=== PATIENT | female | born 1945 | race Caucasian/White ===

== ENCOUNTER 2020-02-14 20:08 | Emergency (ER) | payer MEDICARE, SELFPAY ==
[2020-02-14 20:21] VITALS: BP 198/70; PULSE 73; RESP 18; TEMP 36.8; O2SAT 93; BMI 54.6
--- NOTE | 2020-02-14 21:46 | ED.BACK ---
HPI - Back Pain/Injury General Chief Complaint: Back Pain/Injury Stated Complaint: Back and Leg pain Time Seen by Provider: 02/14/20 21:35 Source: patient Mode of arrival: ambulatory Limitations: no limitations History of Present Illness HPI Narrative: Patient obese with history of restless leg syndrome not taking any medication notice pain in the R lower back for last few days radiating to right leg no history of injury no urinary incontinence or bowel incontinence no focal deficit no sensory loss Related Data Previous Rx's Medication Instructions Recorded cholecalciferol (vitamin D3) 1,250 1,250 mcg PO QWEEK #8 cap 12/22/19 mcg (50,000 unit) capsule cyclobenzaprine 10 mg PO TID PRN #20 tab 02/14/20 lidocaine [Lidoderm] 1 patch TOPICAL DAILY #30 ea 02/14/20 tramadol 50 mg PO Q6H PRN #20 tab 02/14/20 Allergies Allergy/AdvReac Type Severity Reaction Status Date / Time Penicillins [PENICILLINS] Allergy Intermediate SWELLING/RA Verified 02/14/20 20:27 SH penicillin V Allergy Unknown UNKNOWN Verified 02/14/20 20:27 Penicillin Allergy Unknown Swelling Uncoded 02/14/20 20:27 Review of Systems Review of Systems: Constitutional : No Weight loss, No Fever, No Chills ENT/Mouth : No sore throat, No Rhinorrhea Eyes: No Eye Pain, No Swelling Cardiovascular : No Chest Pain, no Dyspnea on Exertion, No Orthopnea, No Edema, No Palpitations, no SOB Respiratory : No Cough, No Sputum Gastrointestinal : no Nausea, No Vomiting, No Diarrhea, No abdominal Pain, No Hematochezia, No Melena Genitourinary : No Dysuria, No Urinary Frequency Musculoskeletal : No joint pain, No Myalgias, No Joint Swelling Skin : No Skin Lesions, No rash Neuro : No Weakness, No Numbness, pos Dizziness, No Headache Psych : No Anxiety/Panic, No Depression Heme/Lymph: No Bruising, No Lymphadenopathy Endocrine : No Polyuria, No Polydipsia All other systems reviewed and are negative [facility] Past Medical History Medical History High cholesterol HTN (hypertension) Social History Social History Advance Directives: No Advance Directives Information Provided: No Physical Exam Vital Signs: Vital Signs: Last Vital Signs Temp 98.3 F 02/14/20 20:21 Pulse 73 02/14/20 20:21 Resp 18 02/14/20 20:21 BP 198/70 H 02/14/20 20:21 Pulse Ox 93 02/14/20 20:21 Body Mass Index 54.6 Appearance: Alert. Oriented X3. No acute distress. obese Eyes: Pupils equal, round and reactive to light. ENT: Pharynx normal. Neck: Normal inspection. Neck supple. CVS: Normal heart rate and rhythm. Pulses normal. Respiratory: No respiratory distress. Breath sounds normal. Abdomen: Soft and nontender. Bowel sounds are present, no mass palpable, no CVA tenderness Skin: Skin warm and dry. Normal skin color. Normal skin turgor. Extremities: No lower extremity edema. Back: Diffuse tenderness L3-L4 tenderness in the right sciatic area SLR negative bilateral deep tendon reflexes 2+ bilateral Neuro: Oriented X 3. No motor deficit. No sensory deficit. MDM - Back Pain/Injury MDM Narrative Medical decision making narrative: Patient plain x-ray showed L3 compression fracture. Will do CT scan of lumbar spine, CT scan showed superior endplate fracture of L3 without any central canal stenosis or neuroforaminal narrowing. Patient with no neuro deficit advised to follow up as outpatient for vertebroplasty patient feeling better ambulatory in the ER Discharge Plan Discharge Clinical Impression: Closed compression fracture of L3 vertebra Qualifiers: Encounter type: initial encounter Qualified Code(s): S32.030A - Wedge compression fracture of third lumbar vertebra, initial encounter for closed fracture Patient Disposition: Home, Self-Care Instructions: Vertebral Compression Fracture (ED) Additional Instructions: Rest , take pain medication as advised. Follow-up with PCP/radiology for further care including vertebroplasty Prescriptions: New tramadol 50 mg tablet 50 mg PO Q6H PRN (Reason: pain) Qty: 20 RF: 0 cyclobenzaprine 10 mg tablet 10 mg PO TID PRN (Reason: muscle spasm) Qty: 20 RF: 0 lidocaine [Lidoderm] 5 % adhesive patch,medicated 1 patch topical DAILY Qty: 30 RF: 0 No Action cholecalciferol (vitamin D3) 1,250 mcg (50,000 unit) capsule 1,250 mcg PO QWEEK Qty: 8 RF: 0 Referrals: Deven José MD [Physician] - 1 week (Compression fracture L3)
--- NOTE | 2020-02-14 21:54 | XR_ITS ---
EXAMINATION: XR LUMBOSACRAL SPINE CLINICAL INFORMATION: Right-sided sciatica COMPARISON: Thoracic spine 12/24/2015 TECHNIQUE: Three views of the lumbosacral spine. FINDINGS: 5 nonrib-bearing lumbar type vertebral bodies are seen. Mild convex left scoliosis. 3 mm grade 1 anterolisthesis L4 on L5. Mild superior endplate compression deformity of L3, age indeterminate. Lower lumbar facet arthropathy. XR/XR lumbar spine 2-3V IMPRESSION: Mild superior endplate compression deformity of L3, age indeterminate.
[2020-02-14] MEDS: Cyclobenzaprine HCl 10 MG TABLET PO (21:59)
[2020-02-14] MEDS: oxyCODONE HCl Immed Release 5 MG TABLET 10 MG PO (21:59)
--- NOTE | 2020-02-14 22:13 | CT_ITS ---
EXAMINATION: CT LUMBAR SPINE WITHOUT CONTRAST CLINICAL INFORMATION: L3 atraumatic fracture COMPARISON: X-rays earlier the same day. TECHNIQUE: Without contrast, axial tomographic images through the lumbar spine were obtained. Coronal and sagittal reformatted images were obtained reviewed as well. This CT examination was performed using dose optimization techniques as appropriate, variously including the following: *Automated exposure control *Adjustment of mA and/or kV according to patient size (this includes techniques or standardized protocols for targeted exams where dose is matched to indication/reason for exam; i.e. extremities or head) *Use of iterative reconstruction technique DLP; 1301 mGy-cm FINDINGS: Minimal 2 mm anterolisthesis of L4 on L5. Otherwise normal sagittal alignment. There is superior endplate compression deformity of L3. The appearance is indeterminate but is more likely chronic than acute. There is no extension into the posterior elements. Remaining lumbar vertebral bodies are intact. There is degenerative disc disease with anterior osteophytosis at T10-L1, greatest at T11-T12. This multilevel lower lumbar facet arthropathy greatest at L4-L5. Spinal levels: T12-L1 through L3-L4: No central canal stenosis or neuroforaminal narrowing. L4-L5: There is uncovering of the disc due to the anterolisthesis at this level and mild bilateral ligamentum flavum hypertrophy with mild to moderate right, mild left neuroforaminal narrowing. No central canal stenosis. L5-S1: No central canal stenosis or neuroforaminal narrowing. CT/CT lumbar spine wo con IMPRESSION: There is superior endplate compression deformity of L3. The appearance is indeterminate but it is more likely chronic than acute. Consider MRI for further evaluation as clinically indicated.
[2020-02-14] MEDS: dexAMETHasone 2 MG TABLET 10 MG PO (22:59)
--- NOTE | 2020-02-14 23:01 | PC.NURSE ---
pt medicated as per emar.
[2020-02-14] MEDS: Lidocaine 4 % Patch ADH..PATCH 1 PATCH TRANSDERMA (23:31)
== END 2020-02-14 23:32 | disposition home or self-care (01) ==
PROVIDERS: Emergency Provider Internal Medicine; PCP Internal Medicine
DX: S32.030A Wedge compression fracture of third lumbar vertebra, initial encounter for closed fracture (principal); G25.81 Restless legs syndrome; M79.604 Pain in right leg; X58.XXXA Exposure to other specified factors, initial encounter; Y93.9 Activity, unspecified; Y92.9 Unspecified place or not applicable; Y99.9 Unspecified external cause status; Z79.899 Other long term (current) drug therapy
CPT/HCPCS: 72100; 72131; 99283; 99284; J8540

== ENCOUNTER 2020-04-26 07:37 | Outpatient (REF) | payer MEDICARE, SELFPAY ==
[2020-04-26 12:01] LABS: Alanine Aminotransferase 39 U/L (0-31); Albumin Level 4.5 g/dL (3.5-5.0); Alkaline Phosphatase 92 U/L (39-117); Anion Gap 14 (12-20); Aspartate Amino Transferase 32 U/L (5-31); Bilirubin Total 1.1 mg/dL (0.0-1.0); Blood Urea Nitrogen 8 mg/dL (9-16); Calcium 9.5 mg/dL (8.4-10.2); Carbon Dioxide 33 mmol/L (22-29); Chloride 96 mmol/L (96-108); Cholesterol 217 mg/dL; Estimated Glomerular Filt Rate > 60; Glucose Fasting 104 mg/dL (60-99); HDL Cholesterol 78 mg/dL; LDL Cholesterol Calculated 111 mg/dl; Potassium 3.7 mmol/L (3.3-5.1); Sodium 139 mmol/L (135-145); Total Protein 7.3 g/dL (6.5-8.0); Triglycerides 143 mg/dL
[2020-04-26 12:28] LABS: Vitamin D 25-OH Total 61.8 ng/mL (>30)
[2020-04-26 12:39] LABS: Folate 7.7 ng/mL (> or = 4.0); Vitamin B12 1412 pg/mL (200-900)
== END 2020-04-26 07:38 | disposition home or self-care (01) ==
LOC: HO.HMGCLDS 07:37
PROVIDERS: PCP Internal Medicine; Visit Provider Internal Medicine
DX: E78.5 Hyperlipidemia, unspecified (principal); E53.8 Deficiency of other specified B group vitamins; I10 Essential (primary) hypertension; Z78.0 Asymptomatic menopausal state
CPT/HCPCS: 36415; 80053; 80061; 82306; 82607; 82746

== ENCOUNTER 2020-10-05 07:52 | Outpatient (REF) | payer MEDICARE, SELFPAY ==
[2020-10-05 12:02] LABS: Alanine Aminotransferase 16 U/L (0-31); Anion Gap 14 (12-20); Aspartate Amino Transferase 15 U/L (5-31); Blood Urea Nitrogen 6 mg/dL (9-16); Carbon Dioxide 32 mmol/L (22-29); Chloride 99 mmol/L (96-108); Cholesterol 189 mg/dL; Estimated Glomerular Filt Rate > 60; Glucose Fasting 111 mg/dL (60-99); HDL Cholesterol 58 mg/dL; LDL Cholesterol Calculated 104 mg/dl; Potassium 4.6 mmol/L (3.3-5.1); Sodium 140 mmol/L (135-145); Triglycerides 135 mg/dL
[2020-10-05 12:07] LABS: Vitamin D 25-OH Total 52.5 ng/mL (>30)
[2020-10-05 12:25] LABS: Vitamin B12 647 pg/mL (200-900)
== END 2020-10-05 07:53 | disposition home or self-care (01) ==
LOC: HO.HMGCLDS 07:52
PROVIDERS: PCP Internal Medicine; Visit Provider Internal Medicine
DX: E78.5 Hyperlipidemia, unspecified (principal); I10 Essential (primary) hypertension; M85.89 Other specified disorders of bone density and structure, multiple sites
CPT/HCPCS: 36415; 80048; 80061; 82306; 82607; 82746; 84450; 84460

== ENCOUNTER 2020-12-16 10:46 | Outpatient (REF) | payer MEDICARE, SELFPAY ==
--- NOTE | ~2020-12-16 | MM_ITS ---
EXAMINATION: BONE DENSITOMETRY CLINICAL INDICATION: Asymptomatic menopausal state. COMPARISON: Previous BD dated 04/19/2018 and baseline BD dated 05/05/2011. CT lumbar spine 02/14/2020 TECHNIQUE: Using a [employer] DXA System (software version: 13.1) manufactured by [employer], dual-energy x-ray absorptiometry was performed of the lumbar spine and left hip. The images are of good technical quality. Summary results are attached. FINDINGS: AP SPINE L1-L4 (excluding L3): The data of L1-L4 has been changed to exclude the L3 vertebral body, because degenerative changes at this level may cause overestimation of lumbar spine density. Current: BMD 0.992 g/cm2, Z-score -0.9, T-score -1.5, osteopenia, 4.8% increase from previous, 4.4% increase from baseline (<5% change is not significant). Prior: BMD 0.947 g/cm2. Baseline: BMD 0.950 g/cm2. LEFT FEMUR, NECK: Current: BMD 0.789 g/cm2, Z-score -0.6, T-score -1.8, osteopenia. Prior: BMD 0.717 g/cm2. Baseline: BMD 0.810 g/cm2. LEFT FEMUR, TOTAL: Current: BMD 0.815 g/cm2, Z-score -0.6, T-score -1.5, osteopenia, 11.5% decrease from previous, 7.5% decrease from baseline (<5% change is not significant). Prior: BMD 0.921 g/cm2. Baseline: BMD 0.881 g/cm2. IDENTIFIED RISK FACTORS: Osteoporosis, height loss, history of fracture (adult). Early menopause, secondary osteoporosis, thiazide, hysterectomy. HISTORY OF FRACTURE: L3 superior endplate concavity/depression. MEDICATIONS: Calcium supplements or multivitamin, vitamin D, bisphosphonates. MM/XR DEXA axial skeleton IMPRESSION: 1. DIAGNOSIS: Osteopenia based on the lowest T-score value of -1.8 in the femoral neck applying World Health Organization criteria. 2. 10-YEAR FRACTURE RISK PREDICTION, FRAX: Major osteoporotic fracture (clinical spine, forearm, hip or shoulder) 15.4%. Hip fracture 3.0%. 3. Treatment Recommendations: NOF guidelines recommend consideration for treatment in postmenopausal women and men age 50 and older presenting with the following: -A hip or vertebral (clinical or morphometric) fracture. -T-score less than or equal to -2.5 at the femoral neck or spine after appropriate evaluation to exclude secondary causes. -Low bone mass at the hip or spine and a 10-year fracture probability by FRAX of greater than or equal to 3% for hip fracture or greater than or equal to 20% for major osteoporotic fracture based on the [place] adapted WHO algorithm. 4. Other Recommendations: All treatment decisions require clinical judgment and consideration of individual patient factors, including patient preferences, comorbidities, previous drug use, risk factors not captured in the FRAX model (e.g. frailty, falls, vitamin D deficiency, increased bone turnover, interval significant decline in bone density) and possible under or overestimation of fracture risk by FRAX. Additional medical evaluation for secondary cause of low bone mineral density may be appropriate. FUTURE SCAN RECOMMENDATION: People with diagnosed cases of osteoporosis or at high risk for fracture should have regular bone mineral density tests. For patients eligible for Medicare, routine testing is allowed once every 2 years. The testing frequency can be increased to one year for patients who have rapidly progressing disease, those who are receiving or discontinuing medical therapy to restore bone mass, or have additional risk factors.
== END 2020-12-16 10:47 | disposition home or self-care (01) ==
LOC: HO.MAMMO 10:46
PROVIDERS: PCP Internal Medicine; Visit Provider Internal Medicine
DX: Z13.820 Encounter for screening for osteoporosis (principal); M85.80 Other specified disorders of bone density and structure, unspecified site; Z78.0 Asymptomatic menopausal state; Z79.899 Other long term (current) drug therapy
CPT/HCPCS: 77080

== ENCOUNTER 2021-12-07 21:08 | Emergency (ER) | payer MEDICARE, SELFPAY ==
--- NOTE | ~2021-12-07 | XR_ITS ---
EXAMINATION: XR KNEE, LEFT CLINICAL INFORMATION: Left knee pain status post fall. COMPARISON: None TECHNIQUE: Four views of the left knee. FINDINGS: Mild patellofemoral degenerative joint changes are seen. The femoral tibial joint spaces are unremarkable. There is no acute fracture or dislocation. There is no joint effusion. Moderate prepatellar soft tissue swelling is seen. Moderate to severe atherosclerosis. XR/XR knee LT 3V IMPRESSION: 1. Moderate prepatellar soft tissue swelling without acute underlying osseous abnormality. 2. Mild patellofemoral degenerative joint changes.
--- NOTE | ~2021-12-07 | US_ITS ---
EXAMINATION: US VENOUS ULTRASOUND WITH DOPPLER LOWER EXTREMITY, LEFT CLINICAL INFORMATION: Left lower extremity pain. COMPARISON: None TECHNIQUE: Ultrasound of the deep veins is performed from the hip to the calf with compression sonography and color and pulse Doppler assessment. Spectral analysis with color-flow imaging is performed. FINDINGS: There is normal venous compression and respiratory variation and augmented flow. The visualized common femoral vein, superficial femoral vein, profunda femoral vein, popliteal vein, and the trifurcation region shows no evidence of deep venous thrombosis. No left popliteal cyst. The subcutaneous soft tissues are unremarkable. If the patient's symptoms persist, followup ultrasound in 5 days 7 days might be of value to exclude proximal propagation from a non-visualized calf vein. US/US venous duplex LE LT IMPRESSION: No evidence of deep venous thrombosis in the visualized veins of the left lower extremity.
[2021-12-07 21:18] VITALS: BP 122/72; BP 170/90; PULSE 77; PULSE 88; RESP 16; TEMP 37.1; O2SAT 94; O2SAT 95; BMI 52.3
--- NOTE | 2021-12-07 21:36 | ED.EXTPRO ---
HPI - Extremity Problem General Chief complaint: Extremity Injury, Lower Stated complaint: left lower leg pain Time Seen by Provider: 12/07/21 21:31 Source: patient Mode of arrival: ambulatory Limitations: no limitations History of Present Illness HPI Narrative: Patient complaining of pain in the left knee for last 3 days fell on the knee today and noticed more pain ambulating with walker at home is more painful now no fever no chills Related Data Home Medications Medication Instructions Recorded Confirmed ibuprofen 200 mg tablet (Motrin IB) 400 mg PO Q8H 04/30/20 07/09/21 Previous Rx's Medication Instructions Recorded sennosides 8.6 mg-docusate sodium 1 tab-cap PO BEDTIME PRN 02/24/20 50 mg tablet (Senokot-S) constipation #20 tabs atenolol 50 mg tablet 50 mg PO DAILY #90 caps 10/12/20 hydrochlorothiazide 25 mg tablet 25 mg PO DAILY #90 caps 10/12/20 simvastatin 20 mg tablet 20 mg PO QPM #90 caps 10/12/20 prednisone 20 mg tablet 20 mg PO DAILY 9 days #18 tabs 07/09/21 triamcinolone acetonide 0.1 % 1 appl topical DAILY 15 days #80 07/09/21 topical cream grams oxycodone-acetaminophen 5 mg-325 1 tab PO Q6H PRN pain #20 tabs 12/08/21 mg tablet (Percocet) Allergies Allergy/AdvReac Type Severity Reaction Status Date / Time Penicillins [PENICILLINS] Allergy Intermediate SWELLING/RA Verified 07/09/21 10:11 SH influenza virus vaccine ts AdvReac edema Verified 07/09/21 10:11 [id number] (36 mos,up) [From [employer]] Review of Systems Review of Systems: Yes all other systems are reviewed and are negative PMF Past Medical History Medical History Body mass index [BMI] 45.0-49.9, adult Dyslipidemia Elevated vitamin B12 level Essential hypertension High cholesterol HTN (hypertension) Lumbar compression fracture Osteopenia of multiple sites Surgical History History of bunionectomy History of hysterectomy Family History Family History Father Myocardial infarction Mother Myocardial infarction Diabetes mellitus HTN (hypertension) Brother Bone cancer Brother No problems noted. Son No problems noted. Son No problems noted. Son No problems noted. Son No problems noted. Social History Social History Housing: House Alcohol intake: current Patient Tobacco Use Status: Former Tobacco user Years Smoked: 3 yrs e-Cigarette/Vaping Use: Never Used Second Hand Smoke Exposure: No Advance Directives: No Advance Directives Information Provided: No service: No Current occupational status: retired Physical Exam Vital Signs: Vital Signs: Last Vital Signs Temp 98.7 F 12/07/21 21:18 Pulse 74 12/07/21 23:36 Resp 17 12/07/21 23:38 BP 119/59 L 12/07/21 23:36 Pulse Ox 97 12/07/21 23:36 O2 Del Method 12/07/21 23:36 BMI result Body Mass Index 52.3 Appearance: Alert. Oriented X3. No acute distress. Eyes: PERRLA, No Nystagmus ENT: Pharynx normal. Oral Mucosa moist Neck: Normal inspection. Neck supple. CVS: Normal heart rate and rhythm. Pulses normal. Respiratory: No respiratory distress. Equal air entry bilateral, no wheezing/rales/rhonchi Abdomen: Soft and nontender. Bowel sounds are present, no mass palpable, no CVA tenderness Skin: Skin warm and dry. Normal skin color. Normal skin turgor. Extremities: No lower extremity edema. No calf tenderness left knee prepatellar tenderness with soft tissue swelling no skin changes no signs of infection no joint effusion good range of left knee movement Neuro: Oriented X 3. No motor deficit. No sensory deficit.No cerebellar signs , cranial nerves II-XII intact MDM - Extremity (Nontraumatic) MDM Narrative Medical decision making narrative: X-ray negative for any significant effusion is wrap applied patient felt better able to ambulate in the ER discharge patient home Discharge Plan Discharge Clinical Impression: Bursitis, prepatellar, left Patient Disposition: Home, Self-Care Instructions: Knee Bursitis (ED) Additional Instructions: Wear Venkat wrap for support Pain medications as prescribed Prescriptions: New oxycodone-acetaminophen [Percocet] 5-325 mg tablet 1 tab PO Q6H PRN (Reason: pain) Qty: 20 0RF Rx Instructions: Partial Fill upon patient request. No Action sennosides-docusate sodium [Senokot-S] 8.6-50 mg tablet 1 tab-cap PO BEDTIME PRN (Reason: constipation) Qty: 20 0RF ibuprofen [Motrin IB] 200 mg tablet 400 mg PO Q8H atenolol 50 mg tablet 50 mg PO DAILY Qty: 90 3RF hydrochlorothiazide 25 mg tablet 25 mg PO DAILY Qty: 90 3RF simvastatin 20 mg tablet 20 mg PO QPM Qty: 90 3RF prednisone 20 mg tablet 20 mg PO DAILY 9 Days Qty: 18 0RF Rx Instructions: Take 3 tablets x3 days, 2 tablets x3 days, 1 tablet x3 days triamcinolone acetonide 0.1 % cream 1 appl topical DAILY 15 Days Qty: 80 0RF
[2021-12-07 23:36] VITALS: BP 119/59; PULSE 74; RESP 18; O2SAT 97
[2021-12-07 23:38] VITALS: RESP 17
[2021-12-07] MEDS: Morphine Sulfate 4 MG/ML CARTRIDGE IM (23:38)
== END 2021-12-08 00:50 | disposition home or self-care (01) ==
PROVIDERS: Emergency Provider Internal Medicine; PCP Internal Medicine
DX: M70.52 Other bursitis of knee, left knee (principal); M79.662 Pain in left lower leg; R60.0 Localized edema; Z79.899 Other long term (current) drug therapy; Z87.891 Personal history of nicotine dependence
CPT/HCPCS: 73562; 93971; 96372; 99283; 99284; J2270

== ENCOUNTER 2022-01-09 05:54 | Outpatient (REF) | payer MEDICARE, SELFPAY | END 2022-01-09 05:55 | disposition home or self-care (01) | LOC: HO.LHD 05:54 | PROVIDERS: Visit Provider Internal Medicine | DX: Z13.89 Encounter for screening for other disorder (principal) ==

== ENCOUNTER 2022-01-10 06:10 | Outpatient (REF) | payer MEDICARE, SELFPAY ==
[2022-01-10 11:40] LABS: Alanine Aminotransferase 19 U/L (0-31); Anion Gap 14 (12-20); Aspartate Amino Transferase 21 U/L (5-31); Blood Urea Nitrogen 7 mg/dL (9-16); Calcium 10.3 mg/dL (8.4-10.2); Carbon Dioxide 33 mmol/L (22-29); Chloride 95 mmol/L (96-108); Cholesterol 192 mg/dL; Estimated Glomerular Filt Rate > 60; Glucose Fasting 104 mg/dL (60-99); HDL Cholesterol 77 mg/dL; LDL Cholesterol Calculated 96 mg/dl; Potassium 4.7 mmol/L (3.3-5.1); Sodium 137 mmol/L (135-145); Triglycerides 97 mg/dL
[2022-01-10 12:21] LABS: Vitamin B12 1246 pg/mL (200-900)
[2022-01-10 13:41] LABS: Vitamin D 25-OH Total 48.9 ng/mL (>30)
== END 2022-01-10 06:11 | disposition home or self-care (01) ==
LOC: HO.LHD 06:10
PROVIDERS: Visit Provider Internal Medicine
DX: E78.5 Hyperlipidemia, unspecified (principal); R74.8 Abnormal levels of other serum enzymes; M85.89 Other specified disorders of bone density and structure, multiple sites; I10 Essential (primary) hypertension; N95.9 Unspecified menopausal and perimenopausal disorder
CPT/HCPCS: 36415; 80048; 80061; 82306; 82607; 82746; 84450; 84460

== ENCOUNTER 2022-06-21 11:40 | Outpatient (AMB) | payer MEDICARE, SELFPAY ==
[2022-06-21 12:14] VITALS: BP 110/68; PULSE 70; O2SAT 94; BMI 45.6
--- NOTE | 2022-06-21 12:14 | MHC.PC.OV ---
Vital Signs 06/21/22 12:14 Height 5 ft 5 in Weight 274 lb 8 oz BMI 45.6 BP 110/68 Blood Pressure Location Rt radial Position Sitting Pulse 70 Pulse Source Pulse Oximeter Pulse Oximetry (%) 94 Oxygen Delivery Method Room Air Intake Visit Reasons: 5 month follow up Intake Note: Pt is here today for a 4 month f/u Allergies Penicillins [PENICILLINS] Allergy (Intermediate, Verified 10/27/22 11:30) SWELLING/RASH influenza virus vaccine ts [id number] (36 mos,up) [From [employer]] Adverse Reaction (Verified 10/27/22 11:30) edema Medication List - Last Reconciled 06/21/22 by Wanda Richardson MD acetaminophen ER (Tylenol Arthritis Pain) 650 mg PO Q12H atenolol 50 mg PO DAILY diclofenac sodium 1% 4 grams topical QID PRN hydrochlorothiazide 25 mg PO DAILY ibuprofen (Motrin IB) 400 mg PO Q8H sennosides-docusate sodium 8.6-50 mg (Senokot-S) 1 tab-cap PO BEDTIME PRN simvastatin 20 mg PO QPM triamcinolone acetonide 0.1% 1 appl topical DAILY 15 days Tobacco use date assessed: 06/21/22 Fall risk assessment: No Falls in past year Last assessed Fall Risk: 06/21/22 HPI 5 month follow up HPI Details 77-year-old lady with hypertension, dyslipidemia, osteopenia of multiple sites with history of lumbar compression fracture, here today for follow-up. She has been feeling well with no complaints at present time. Has been compliant with taking her medications, but admits to not getting any regular exercise. [facility] Medical History (Updated 10/31/22 @ 01:12 by Wanda Richardson MD) Impaired fasting glucose Body mass index [BMI] 45.0-49.9, adult Elevated vitamin B12 level Osteopenia of multiple sites Essential hypertension Dyslipidemia Lumbar compression fracture High cholesterol HTN (hypertension) Surgical History History of bunionectomy History of hysterectomy Family History Father Myocardial infarction Mother Myocardial infarction Diabetes mellitus HTN (hypertension) Brother Bone cancer Brother No problems noted. Son No problems noted. Son No problems noted. Son No problems noted. Son No problems noted. Housing: House Alcohol intake: current Patient Tobacco Use Status: Former Tobacco user Years Smoked: 3 yrs e-Cigarette/Vaping Use: Never Used Second Hand Smoke Exposure: No service: No Current occupational status: retired Cognitive needs: No Hearing needs: No Vision needs: Yes Questionnaire PHQ-9 Over the last 2 weeks, how often have you been bothered by any of the following problems? 1. Little interest or pleasure in doing things: not at all 2. Feeling down, depressed, or hopeless: not at all 3. Trouble falling or staying asleep, or sleeping too much: more than half the days 4. Feeling tired or having little energy: several days 5. Poor appetite or overeating: not at all 6. Feeling bad about yourself - or that you are a failure or have let yourself or your family down: not at all 7. Trouble concentrating on things, such as reading the newspaper or watching television: not at all 8. Moving or speaking so slowly that other people could have noticed. Or the opposite - being so fidgety or restless that you have been moving around a lot more than usual: not at all 9. Thoughts that you would be better off or of hurting yourself in some way: not at all Total score: 3 Depression Screening Interpretation: Negative [id number] - PHQ-9 Billing: Yes Source: Developed by Drs. Torey Osborne, Greer Gonzalez, Jun Saul and colleagues, with an educational ewa from [employer]. Thrive Questionnaire Declines Thrive assessment: No Date Thrive assessed: 06/21/22 I am a: Patient What is your living situation today?: I have a steady place to live Within the past 12 months, did the food you bought not last and you didn't have the money to get more?: Never true Within the past 12 months, did you worry whether your food would run out before you got money to buy more?: Never true Do you have trouble paying for medicines?: No Do you have trouble getting transportation to medical appointments?: No Do you have trouble paying your heating and electricity bill?: No Do you have trouble taking care of your child, family member or friend?: Yes Do you have trouble with day-to-day activities such as bathing, preparing meals, shopping, managing finances, etc.?: No Are you currently unemployed and looking for a job?: No Are you interested in more education?: No AUDIT C Alcohol Use Questionnaire (AUDIT-C) 1. How often do you have a drink containing alcohol?: 2-3 times a week 2. How many drinks containing alcohol do you have on a typical day when you are drinking?: 1 or 2 3. How often do you have six or more drinks on one occasion?: Never Total Score: 3 ANA-7 AMB Questionnaire ANA-7 Date ANA - 7 assessed: 06/21/22 Feeling nervous, anxious, or on edge: 0 = Not at all Not being able to stop or control worryin = Not at all Worrying too much about different things: 0 = Not at all Trouble relaxin = Not at all Being so restless that it is hard to sit still: 0 = Not at all Becoming easily annoyed or irritable: 0 = Not at all Feeling afraid as if something awful might happen: 0 = Not at all Total ANA-7 score (0-4 normal; 5-9 mild; 10-14 moderate; 15-21 severe): 0 Source: Developed by Drs. Torey Osborne, Greer Gonzalez, Jun Saul and colleagues, with an educational ewa from [employer]. ANA-7 Assessment Billing ANA-7 Assessment Tool: ANA-7 Assessment 16675 Review of Systems Const Denies headache(s) Eyes Details: [facility] [place] [facility] , glaucoma suspect ENT Denies vertigo, Denies dizziness and Denies headache(s) Card Denies chest pain, Denies leg edema and Denies lightheadedness Resp Denies cough and Denies wheezing GI Denies abdominal pain, Denies constipation and Denies diarrhea Reports no additional complaints Musc Denies arthralgias, Denies joint swelling, Denies numbness and Denies tingling Neuro Denies vertigo, Denies dizziness, Denies headache(s), Denies numbness and Denies tingling Psych Reports no additional complaints Endo Reports no additional complaints Brandyn/Lymph Reports no additional complaints Aller/Immun Denies wheezing Physical exam (Primary Care) Vital Signs: Last Vital Signs Pulse 70 06/21/22 12:14 BP 110/68 06/21/22 12:14 Pulse Ox 94 06/21/22 12:14 Oxygen Delivery Method Room Air 06/21/22 12:14 BMI result Body Mass Index 45.6 Tobacco/Smoking Status: Tobacco use Status Tobacco use date assessed 06/21/22 06/21/22 12:23 Patient Tobacco Use Status Former Tobacco user 06/21/22 12:23 e-Cigarette/Vaping Use Never Used 06/21/22 12:23 PHQ-9: PHQ-9 Score PHQ-9: Total score 3 06/21/22 13:09 Depression Screening Interpretation: Negative Thrive Assessment: Date of Thrive Assessment Date Thrive assessed 06/21/22 06/21/22 12:23 Const General: comfortable, no acute distress, well developed, alert and awake Orientation/consciousness: patient oriented x3 HENMT Ears: EAC's normal General nose exam: Normal external nose present and No nasal discharge present Mouth: oropharynx normal and moist mucous membranes Throat: Yes posterior oropharynx normal Eyes General: appearance normal, both eyes and all related structures Pupils: Equal, round and reactive pupils present Neck Neck: Yes full ROM, Yes no lymphadenopathy and Yes supple Resp Effort & Inspection: normal respiratory effort and able to speak in complete sentences Auscultation: clear to auscultation bilaterally Cardio Rate: regular rate Rhythm: regular rhythm Heart sounds: S1 normal heart sound present and S2 normal heart sound present GI Inspection: Yes normal to inspection Palpation (GI): Soft to palpation, nontender and no masses Auscultation: normal bowel sounds Back/Spine/Pelvis Cervical Spine: cervical ROM normal Thoracic/Lumbar Spine: thoracic and lumbar spine normal to inspection Skin General skin exam: no rashes or lesions noted Neuro General: patient oriented x3 Cranial nerves: Yes Equal, round and reactive pupils present Cognition (Neuro): normal cognition Gait exam (Neuro): Normal gait present Motor exam (neuro): 5/5 motor strength present throughout Extrem General: Yes full ROM, Yes no joint enlargement, Yes no pedal edema and Yes no calf tenderness Assessment and Plan Assessment & Plan (1) Body mass index [BMI] 45.0-49.9, adult: Code(s): Z68.42 - Body mass index [BMI] 45.0-49.9, adult Plan: Your BMI is above the ideal range. I deal BMI is between 18.5- 24. BMI is calculated from you height and weight. Weight gain happens when you taken more calories than you burn off. Discussed need to increase activity and weight reduction. Recommended focusing on improving health instead of dieting. Mediterranean diet is a healthy diet that helps, limit food high in fat, sugar, and calories. Eat slowly, pay attention to portion sizes, plan your meals ahead of time, start regular physical activity, at least 150 minutes of moderate intensity exercise, or 90 minutes per week of vigorous exercise. Keeping a food diary, tracking what you eat and your physical activity can help assess what improvements you can make. There are many health problems associated with being overweight/obese, so it is important to improve your diet and exercise. There are medications and surgical options available, but Lifestyle changes are the 1st step. (2) Elevated vitamin B12 level: Code(s): R74.8 - Abnormal levels of other serum enzymes Plan: Will check and again another vitamin B12 level (3) Osteopenia of multiple sites: Code(s): M85.89 - Other specified disorders of bone density and structure, multiple sites Plan: Will check vitamin-D, basic metabolic panel, advised to start doing regular weight-bearing exercise as tolerated and stay active, (4) Essential hypertension: Code(s): I10 - Essential (primary) hypertension Plan: Blood pressure at goal of less than 130/80. Continue with current medication. Reinforced importance of following a low sodium diet, getting regular exercise, and lowering stress levels. (5) Dyslipidemia: Code(s): E78.5 - Hyperlipidemia, unspecified Plan: Fasting lipid panel ordered continue on simvastatin 20 mg at bedtime, in addition to adhering to low-cholesterol diet and getting regular exercise. Orders: Orders Alanine Aminotransferase 06/21/22 Z68.42 - Body mass index [BMI] 45.0-49.9, adult, R74.8 - Abnormal levels of other serum enzymes, M85.89 - Other specified disorders of bone density and structure, multiple sites, I10 - Essential (primary) hypertension, E78.5 - Hyperlipidemia, unspecified Basic Metabolic Panel Fasting 3 Months Z68.42 - Body mass index [BMI] 45.0-49.9, adult, R74.8 - Abnormal levels of other serum enzymes, M85.89 - Other specified disorders of bone density and structure, multiple sites, I10 - Essential (primary) hypertension, E78.5 - Hyperlipidemia, unspecified Lipid Panel 06/21/22 Z68.42 - Body mass index [BMI] 45.0-49.9, adult, R74.8 - Abnormal levels of other serum enzymes, M85.89 - Other specified disorders of bone density and structure, multiple sites, I10 - Essential (primary) hypertension, E78.5 - Hyperlipidemia, unspecified Vitamin B12 and Folate 06/21/22 Z68.42 - Body mass index [BMI] 45.0-49.9, adult, R74.8 - Abnormal levels of other serum enzymes, M85.89 - Other specified disorders of bone density and structure, multiple sites, I10 - Essential (primary) hypertension, E78.5 - Hyperlipidemia, unspecified Vitamin D 25-OH Total 06/21/22 Z68.42 - Body mass index [BMI] 45.0-49.9, adult, R74.8 - Abnormal levels of other serum enzymes, M85.89 - Other specified disorders of bone density and structure, multiple sites, I10 - Essential (primary) hypertension, E78.5 - Hyperlipidemia, unspecified Aspartate Amino Transferase 06/21/22 Z68.42 - Body mass index [BMI] 45.0-49.9, adult, R74.8 - Abnormal levels of other serum enzymes, M85.89 - Other specified disorders of bone density and structure, multiple sites, I10 - Essential (primary) hypertension, E78.5 - Hyperlipidemia, unspecified Calcium, Ionized 06/21/22 Z68.42 - Body mass index [BMI] 45.0-49.9, adult, R74.8 - Abnormal levels of other serum enzymes, M85.89 - Other specified disorders of bone density and structure, multiple sites, I10 - Essential (primary) hypertension, E78.5 - Hyperlipidemia, unspecified Coding Level of Care Code Est Pt Level 4 (76330) Diagnoses Body mass index [BMI] 45.0-49.9, adult Z68.42 Elevated vitamin B12 level R74.8 Osteopenia of multiple sites M85.89 Essential hypertension I10 Dyslipidemia E78.5 Additional Codes ANA-7 Assessment Billing - ANA-7 Assessment Tool: ANA-7 Assessment [id number] ([id number])
== END 2022-06-21 13:10 | disposition home or self-care (01) ==
LOC: HO.HMGC 11:40
PROVIDERS: PCP Internal Medicine; Visit Provider Internal Medicine
DX: R74.8 Abnormal levels of other serum enzymes (principal); M85.89 Other specified disorders of bone density and structure, multiple sites; Z68.42 Body mass index [BMI] 45.0-49.9, adult; E66.01 Morbid (severe) obesity due to excess calories; I10 Essential (primary) hypertension; E78.5 Hyperlipidemia, unspecified
CPT/HCPCS: 99214

== ENCOUNTER 2022-06-29 08:09 | Outpatient (REF) | payer MEDICARE, SELFPAY ==
[2022-06-29 12:48] LABS: Alanine Aminotransferase 14 U/L (0-31); Anion Gap 14 (12-20); Aspartate Amino Transferase 16 U/L (5-31); Blood Urea Nitrogen 9 mg/dL (9-16); Calcium 9.8 mg/dL (8.4-10.2); Carbon Dioxide 30 mmol/L (22-29); Chloride 98 mmol/L (96-108); Cholesterol 191 mg/dL; Estimated Glomerular Filt Rate > 60; Glucose Fasting 106 mg/dL (60-99); HDL Cholesterol 72 mg/dL; LDL Cholesterol Calculated 93 mg/dl; Potassium 4.6 mmol/L (3.3-5.1); Sodium 137 mmol/L (135-145); Triglycerides 131 mg/dL
[2022-06-29 13:03] LABS: Folate 7.7 ng/mL (> or = 4.0); Vitamin B12 421 pg/mL (200-900); Vitamin D 25-OH Total 37.9 ng/mL (>30)
[2022-07-03 08:38] LABS: Calcium, Ionized 5.2 mg/dL (4.7-5.5)
== END 2022-06-29 08:10 | disposition home or self-care (01) ==
LOC: HO.HMGCLDS 08:09
PROVIDERS: PCP Internal Medicine; Visit Provider Internal Medicine
DX: R74.8 Abnormal levels of other serum enzymes (principal); E78.5 Hyperlipidemia, unspecified; I10 Essential (primary) hypertension; M85.89 Other specified disorders of bone density and structure, multiple sites
CPT/HCPCS: 36415; 80048; 80061; 82306; 82330; 82607; 82746; 84450; 84460

== ENCOUNTER 2022-10-27 10:34 | Outpatient (AMB) | payer MEDICARE, SELFPAY ==
--- NOTE | 2022-10-27 10:44 | A.OFFPC_ITS ---
Vital Signs 10/27/22 10:48 Height 5 ft 5 in Weight 304 lb BMI 50.6 BP 148/80 H Blood Pressure Location Rt radial Position Sitting Pulse 75 Pulse Source Pulse Oximeter Pulse Oximetry (%) 98 Oxygen Delivery Method Room Air Comment Has not taken yet her blood pressure medicine this morning Intake Visit Reasons: 4 month follow up Intake Note: Pt is here today for her 4 months f/u: Pt states didn't care b/p med this morning Allergies Penicillins [PENICILLINS] Allergy (Intermediate, Verified 10/27/22 11:30) SWELLING/RASH influenza virus vaccine ts [id number] (36 mos,up) [From [employer]] Adverse Reaction (Verified 10/27/22 11:30) edema Medication List - Last Reconciled 10/27/22 by Wanda Richardson MD acetaminophen ER (Tylenol Arthritis Pain) 650 mg PO Q12H atenolol 50 mg PO DAILY diclofenac sodium 1% 4 grams topical QID PRN hydrochlorothiazide 25 mg PO DAILY ibuprofen (Motrin IB) 400 mg PO Q8H sennosides-docusate sodium 8.6-50 mg (Senokot-S) 1 tab-cap PO BEDTIME PRN simvastatin 20 mg PO QPM triamcinolone acetonide 0.1% 1 appl topical DAILY 15 days Tobacco use date assessed: 10/27/22 Fall risk assessment: No Falls in past year Last assessed Fall Risk: 10/27/22 Dental Screening Dental Screen Date: 10/27/22 Did you have a dental visit in the last 12 months?: No Was dental information given to patient?: Patient has dentist HPI 4 month follow up HPI Details 77-year-old lady with hypertension, dyslipidemia, osteopenia and multiple sites with history of lumbar compression fracture, here today for follow-up. She has been feeling well, compliant with taking medications and follows her diet as recommended, no complaints at present time. Had recent fasting labs done which showed fasting blood sugar in the prediabetic range at 106 mg/dL but her fasting lipids, liver enzymes vitamin-D, B12, folic acid levels and electrolytes are all within normal limits. [facility] Medical History (Updated 10/31/22 @ 01:12 by Wanda Richardson MD) Body mass index [BMI] 45.0-49.9, adult Dyslipidemia Elevated vitamin B12 level Essential hypertension High cholesterol HTN (hypertension) Impaired fasting glucose Lumbar compression fracture Osteopenia of multiple sites Surgical History History of bunionectomy History of hysterectomy Family History Father Myocardial infarction Mother Myocardial infarction Diabetes mellitus HTN (hypertension) Brother Bone cancer Brother No problems noted. Son No problems noted. Son No problems noted. Son No problems noted. Son No problems noted. Social History Housing: House Alcohol intake: current Patient Tobacco Use Status: Former Tobacco user Years Smoked: 3 yrs e-Cigarette/Vaping Use: Never Used Second Hand Smoke Exposure: No service: No Current occupational status: retired Cognitive needs: No Hearing needs: No Vision needs: Yes Questionnaire PHQ-9 Over the last 2 weeks, how often have you been bothered by any of the following problems? 1. Little interest or pleasure in doing things: not at all 2. Feeling down, depressed, or hopeless: not at all 3. Trouble falling or staying asleep, or sleeping too much: more than half the days 4. Feeling tired or having little energy: several days 5. Poor appetite or overeating: not at all 6. Feeling bad about yourself - or that you are a failure or have let yourself or your family down: not at all 7. Trouble concentrating on things, such as reading the newspaper or watching television: not at all 8. Moving or speaking so slowly that other people could have noticed. Or the opposite - being so fidgety or restless that you have been moving around a lot more than usual: not at all 9. Thoughts that you would be better off or of hurting yourself in some way: not at all Total score: 3 Depression Screening Interpretation: Negative Source: Developed by Drs. Torey Osborne, Greer Gonzalez, Jun Saul and colleagues, with an educational ewa from [employer]. Thrive Questionnaire Date Thrive assessed: 06/21/22 ANA-7 AMB Questionnaire ANA-7 Date ANA - 7 assessed: 06/21/22 Source: Developed by Drs. Torey Osborne, Greer Gonzalez, Jun Saul and colleagues, with an educational ewa from [employer]. Review of Systems Const Denies headache(s) ENT Denies vertigo, Denies dizziness and Denies headache(s) Card Denies chest pain, Denies leg edema and Denies lightheadedness Resp Denies cough and Denies wheezing GI Denies abdominal pain, Denies constipation and Denies diarrhea Reports no additional complaints Musc Denies arthralgias, Denies joint swelling, Denies numbness and Denies tingling Neuro Denies vertigo, Denies dizziness, Denies headache(s), Denies numbness and Denies tingling Psych Reports no additional complaints Endo Reports no additional complaints Brandyn/Lymph Reports no additional complaints Aller/Immun Denies wheezing Physical exam (Primary Care) Vital Signs: Last Vital Signs Pulse 75 10/27/22 10:48 BP 148/80 H 10/27/22 10:48 Pulse Ox 98 10/27/22 10:48 Oxygen Delivery Method Room Air 10/27/22 10:48 BMI result Body Mass Index 50.6 Tobacco/Smoking Status: Tobacco use Status Tobacco use date assessed 10/27/22 10/27/22 10:47 Patient Tobacco Use Status Former Tobacco user 10/27/22 10:45 e-Cigarette/Vaping Use Never Used 10/27/22 10:45 Depression Screening Interpretation: Negative Thrive Assessment: Date of Thrive Assessment Date Thrive assessed 06/21/22 10/27/22 10:45 Const General: comfortable, no acute distress, well developed, alert and awake Orientation/consciousness: patient oriented x3 HENMT Ears: EAC's normal General nose exam: Normal external nose present and No nasal discharge present Mouth: oropharynx normal and moist mucous membranes Throat: Yes posterior oropharynx normal Eyes General: appearance normal, both eyes and all related structures Neck Neck: Yes full ROM, Yes no lymphadenopathy and Yes supple Resp Effort & Inspection: normal respiratory effort and able to speak in complete sentences Auscultation: clear to auscultation bilaterally Cardio Rate: regular rate Rhythm: regular rhythm Heart sounds: S1 normal heart sound present and S2 normal heart sound present GI Inspection: Yes normal to inspection Palpation (GI): Soft to palpation, nontender and no masses Auscultation: normal bowel sounds Back/Spine/Pelvis Cervical Spine: cervical ROM normal Thoracic/Lumbar Spine: thoracic and lumbar spine normal to inspection Skin General skin exam: no rashes or lesions noted Neuro General: patient oriented x3 Cognition (Neuro): normal cognition Gait exam (Neuro): Normal gait present Motor exam (neuro): 5/5 motor strength present throughout Extrem General: Yes full ROM, Yes no joint enlargement, Yes no pedal edema and Yes no calf tenderness Results Reviewed Results Reviewed: NTERED: 06/29/22 GLENN MERCADO: ORDERED: Met Prof Fast, AST, ALT, Lipid Panel, B12FOL, Vitamin D 25-OH Test Result Flag Reference Site Sodium 137 135-145 mmol/L Potassium 4.6 3.3-5.1 mmol/L CL 98 96-108 mmol/L CO2 30 H 22-29 mmol/L Gap 14 12-20 BUN 9 9-16 mg/dL Creat 0.70 0.5-1.4 mg/dL EGFR > 60 NOTE: For -Japanese individuals, multiply the result by 1.210. Chronic Kidney Disease: Estimated GFR < 60 mL/min/1.73m2 Severe Kidney Disease: Estimated GFR < 15 mL/min/1.73m2 FBS 106 H 60-99 mg/dL A fasting glucose from 100-125 mg/dl is considered impaired (pre-diabetes). CA 9.8 8.4-10.2 mg/dL AST (GOT) 16 5-31 U/L ALT (GPT) 14 0-31 U/L Triglyceride 131 mg/dL Desirable Triglyceride: less than 150 mg/dL Borderline High Triglyceride 150-199 mg/dL High Triglyceride: 200-499 mg/dL Very High Triglyceride: greater than or equal to 5OO mg/dL Chol 191 mg/dL Desirable Cholesterol: less than 200 mg/dL Borderline High Cholesterol: 200-239 mg/dL High Cholesterol: greater than 239 mg/dL LDL Calculated 93 mg/dl Desirable LDL: less than 100 mg/dL Near Optimal/Above Optimal LDL: 110-129 mg/dL Borderline High LDL: 130-159 mg/dL High LDL: 160-189 mg/dL Very High LDL: greater than or equal to 190 mg/dL HDL 72 mg/dL Desirable HDL: greater than 40 mg/dL Note: This HDL assay may give artificially low results in patients with liver disease. Vitamin B12 421 200-900 pg/mL NORMAL 200-900 PG/ML INDETERMINATE 160-199 PG/ML DEFICIENT < 160 PG/ML Folate 7.7 > or = 4.0 ng/mL Reference Values: > or = 4.0 ng/mL < 4.0 ng/mL suggests folate deficiency Methotrexate, aminopterin and folinic acid (leucovorin) are chemotherapeutic agents whose molecular structures are similar to folate; therefore, the [employer] Expert folate assay cannot be used for patients using these d rugs. Vit D 25-OH Tot 37.9 >30 ng/mL Health Based Reference Values* < 20 ng/mL Deficient 20-30 ng/mL Insufficient > 30 ng/mL Sufficient Assessment and Plan Assessment & Plan (1) Osteopenia of multiple sites: Code(s): M85.89 - Other specified disorders of bone density and structure, multiple sites Plan: Ordered vitamin-D level and bone density scan. (2) Essential hypertension: Code(s): I10 - Essential (primary) hypertension Plan: Blood pressure at goal of less than 130/80. Continue with current medication. Reinforced importance of following a low sodium diet, getting regular exercise, and lowering stress levels. (3) Dyslipidemia: Code(s): E78.5 - Hyperlipidemia, unspecified Plan: Reviewed recent fasting lipid profile with patient with levels . Continue with , in addition to adherence to low-cholesterol diet and regular exercise, at least 30 minutes 3 to 4 times a week. Advised patient to make healthy food choices, eat more fruits, vegetables, whole grains, wild caught fish and low- fat dairy. Limit amount of meat and fried or fatty food products, as well as processed foods and fast foods. Follow-up scheduled with repeat fasting lipid panel in months. (4) Impaired fasting glucose: Code(s): R73.01 - Impaired fasting glucose Plan: Recent fasting blood sugar is in the prediabetic range. Impaired glucose metabolism O2 at risk for developing diabetes mellitus type 2, as well as heart attack and stroke later on. Lifestyle changes at just weight loss, healthy eating habits, and regular exercise are important, and can prevent the progression to diabetes Orders: Orders Alanine Aminotransferase 12/27/22 E78.5 - Hyperlipidemia, unspecified, I10 - Essential (primary) hypertension, M85.89 - Other specified disorders of bone density and structure, multiple sites, Z78.0 - Asymptomatic menopausal state Aspartate Amino Transferase 12/27/22 E78.5 - Hyperlipidemia, unspecified, I10 - Essential (primary) hypertension, M85.89 - Other specified disorders of bone density and structure, multiple sites, Z78.0 - Asymptomatic menopausal state Vitamin B12 and Folate 12/27/22 E78.5 - Hyperlipidemia, unspecified, I10 - Essential (primary) hypertension, M85.89 - Other specified disorders of bone density and structure, multiple sites, Z78.0 - Asymptomatic menopausal state Lipid Panel 12/27/22 E78.5 - Hyperlipidemia, unspecified, I10 - Essential (primary) hypertension, M85.89 - Other specified disorders of bone density and structure, multiple sites, Z78.0 - Asymptomatic menopausal state Vitamin D 25-OH Total 12/27/22 E78.5 - Hyperlipidemia, unspecified, I10 - Essential (primary) hypertension, M85.89 - Other specified disorders of bone density and structure, multiple sites, Z78.0 - Asymptomatic menopausal state Basic Metabolic Panel Fasting 12/27/22 E78.5 - Hyperlipidemia, unspecified, I10 - Essential (primary) hypertension, M85.89 - Other specified disorders of bone density and structure, multiple sites, Z78.0 - Asymptomatic menopausal state Hemoglobin A1c 12/27/22 E78.5 - Hyperlipidemia, unspecified, I10 - Essential (primary) hypertension, M85.89 - Other specified disorders of bone density and structure, multiple sites, Z78.0 - Asymptomatic menopausal state XR DEXA axial skeleton 10/27/22 M85.89 - Other specified disorders of bone density and structure, multiple sites, S32.000A - Wedge compression fracture of unspecified lumbar vertebra, initial encounter for closed fracture, Z13.820 - Encounter for screening for osteoporosis, Z78.0 - Asymptomatic menopausal state Coding Level of Care Code Est Pt Level 4 (08487) Diagnoses Osteopenia of multiple sites M85.89 Essential hypertension I10 Dyslipidemia E78.5 Impaired fasting glucose R73.01
[2022-10-27 10:48] VITALS: BP 148/80; PULSE 75; O2SAT 98; BMI 50.6
== END 2022-10-27 12:14 | disposition home or self-care (01) ==
PROVIDERS: Visit Provider Internal Medicine
DX: M85.89 Other specified disorders of bone density and structure, multiple sites (principal); I10 Essential (primary) hypertension; E78.5 Hyperlipidemia, unspecified; R73.01 Impaired fasting glucose
CPT/HCPCS: 99214

== ENCOUNTER 2022-12-28 09:42 | Outpatient (REF) | payer MEDICARE, SELFPAY ==
--- NOTE | ~2022-12-28 | MM_ITS ---
EXAMINATION: BONE DENSITOMETRY CLINICAL INDICATION: Encounter for screening for osteoporosis. COMPARISON: Previous BD dated 12/16/2020 and baseline BD dated 05/05/2011. TECHNIQUE: Using a [employer] DXA System (software version: 13.1) manufactured by [employer], dual-energy x-ray absorptiometry was performed of the lumbar spine and left hip. The images are of good technical quality. Summary results are attached. FINDINGS: LEFT FEMUR, NECK: Current: BMD 0.549 g/cm2, Z-score -2.2, T-score -3.5, osteoporosis. Prior: BMD 0.789 g/cm2. Baseline: BMD 0.810 g/cm2. LEFT FEMUR, TOTAL: Current: BMD 0.683 g/cm2, Z-score -1.6, T-score -2.6, osteoporosis, 16.2% decrease from previous, 22.5% decrease from baseline (<5% change is not significant). Prior: BMD 0.815 g/cm2. Baseline: BMD 0.881 g/cm2. AP SPINE L1-L4: Current: BMD 1.026 g/cm2, Z-score -0.7, T-score -1.3, osteopenia, 2.6% decrease from previous, 9.1% increase from baseline (<5% change is not significant). Prior: BMD 1.053 g/cm2. Baseline: BMD 0.940 g/cm2. IDENTIFIED RISK FACTORS: Early menopause, secondary osteoporosis, hysterectomy, bilateral oophorectomy. HISTORY OF FRACTURE: None listed. MEDICATIONS: Calcium. MM/XR DEXA axial skeleton IMPRESSION: 1. DIAGNOSIS: Osteoporosis based on the lowest T-score value of -3.5 in the femoral neck applying World Health Organization criteria. 2. 10-YEAR FRACTURE RISK PREDICTION, FRAX: According to the guidelines, FRAX calculation should only be performed on patients in the osteopenia bone density category. Therefore, FRAX was not performed on this patient. 3. Treatment Recommendations: NOF guidelines recommend consideration for treatment in postmenopausal women and men age 50 and older presenting with the following: -A hip or vertebral (clinical or morphometric) fracture. -T-score less than or equal to -2.5 at the femoral neck or spine after appropriate evaluation to exclude secondary causes. -Low bone mass at the hip or spine and a 10-year fracture probability by FRAX of greater than or equal to 3% for hip fracture or greater than or equal to 20% for major osteoporotic fracture based on the [place] adapted WHO algorithm. 4. Other Recommendations: All treatment decisions require clinical judgment and consideration of individual patient factors, including patient preferences, comorbidities, previous drug use, risk factors not captured in the FRAX model (e.g. frailty, falls, vitamin D deficiency, increased bone turnover, interval significant decline in bone density) and possible under or overestimation of fracture risk by FRAX. Additional medical evaluation for secondary cause of low bone mineral density may be appropriate. FUTURE SCAN RECOMMENDATION: People with diagnosed cases of osteoporosis or at high risk for fracture should have regular bone mineral density tests. For patients eligible for Medicare, routine testing is allowed once every 2 years. The testing frequency can be increased to one year for patients who have rapidly progressing disease, those who are receiving or discontinuing medical therapy to restore bone mass, or have additional risk factors.
== END 2022-12-28 09:43 | disposition home or self-care (01) ==
LOC: HO.MAMMO 09:42
PROVIDERS: PCP Internal Medicine; Visit Provider Internal Medicine
DX: Z13.820 Encounter for screening for osteoporosis (principal); Z78.0 Asymptomatic menopausal state; M85.89 Other specified disorders of bone density and structure, multiple sites; S32.000A Wedge compression fracture of unspecified lumbar vertebra, initial encounter for closed fracture
CPT/HCPCS: 77080

== ENCOUNTER 2023-03-02 08:21 | Outpatient (REF) | payer MEDICARE, SELFPAY ==
[2023-03-02 12:17] LABS: Alanine Aminotransferase 10 U/L (0-31); Anion Gap 16 (12-20); Aspartate Amino Transferase 16 U/L (5-31); Blood Urea Nitrogen 11 mg/dL (9-16); Calcium 10.1 mg/dL (8.4-10.2); Carbon Dioxide 30 mmol/L (22-29); Chloride 95 mmol/L (96-108); Cholesterol 192 mg/dL (<200); Estimated Glomerular Filt Rate > 60; Glucose Fasting 114 mg/dL (60-99); HDL Cholesterol 81 mg/dL (>40); LDL Cholesterol Calculated 92 mg/dL (<100); Potassium 4.3 mmol/L (3.3-5.1); Sodium 137 mmol/L (135-145); Triglycerides 96 mg/dL (<150)
[2023-03-02 12:33] LABS: Vitamin D 25-OH Total 37.2 ng/mL (>30)
== END 2023-03-02 08:22 | disposition home or self-care (01) ==
LOC: HO.HMGCLDS 08:21
PROVIDERS: PCP Internal Medicine; Visit Provider Internal Medicine
DX: M85.89 Other specified disorders of bone density and structure, multiple sites (principal); I10 Essential (primary) hypertension; E78.5 Hyperlipidemia, unspecified; Z78.0 Asymptomatic menopausal state
CPT/HCPCS: 36415; 80048; 80061; 82306; 82607; 82746; 83036; 84450; 84460

== ENCOUNTER 2023-03-09 10:32 | Outpatient (AMB) | payer MEDICARE, SELFPAY ==
[2023-03-09 10:55] VITALS: BP 130/68; PULSE 63; O2SAT 97; BMI 49.8
--- NOTE | 2023-03-09 10:55 | MHC.PC.OV ---
Vital Signs 03/09/23 10:55 Height 5 ft 5 in Weight 299 lb 8 oz BMI 49.8 BP 130/68 Blood Pressure Location Rt radial Position Sitting Pulse 63 Pulse Source Pulse Oximeter Pulse Oximetry (%) 97 Oxygen Delivery Method Room Air Intake Visit Reasons: 2M. F/U-Hypertension/Lipids After Fasting Labs Intake Note: Pt is here to follow up for her lab results and bone density Allergies Penicillins [PENICILLINS] Allergy (Intermediate, Verified 03/09/23 11:11) SWELLING/RASH influenza virus vaccine ts [id number] (36 mos,up) [From Fluarix] Adverse Reaction (Verified 03/09/23 11:11) edema Medication List - Last Reconciled 03/09/23 by Wanda Richardson MD acetaminophen ER (Tylenol Arthritis Pain) 650 mg PO Q12H atenolol 50 mg PO DAILY diclofenac sodium 1% 4 grams topical QID PRN hydrochlorothiazide 25 mg PO DAILY ibuprofen (Motrin IB) 400 mg PO Q8H sennosides-docusate sodium 8.6-50 mg (Senokot-S) 1 tab-cap PO BEDTIME PRN simvastatin 20 mg PO QPM triamcinolone acetonide 0.1% 1 appl topical DAILY 15 days Tobacco use date assessed: 03/09/23 Fall risk assessment: No Falls in past year Last assessed Fall Risk: 03/09/23 Dental Screening Dental Screen Date: 03/09/23 Did you have a dental visit in the last 12 months?: No Did you have a dental problem in the last 6 months where you did not have access to dental care?: No Was dental information given to patient?: Patient has dentist HPI 2M. F/U-Hypertension/Lipids After Fasting Labs HPI Details 77-year-old lady with hypertension, prediabetes, and hyperlipidemia here today for follow-up. She also had a recent bone density scan done December 2022, which showed Osteoporosis based on the lowest T-score value of -3.5 in the femoral neck , has history of lumbar compression fractures in the past.. Has been feeling well compliant with medication. [facility] Medical History (Updated 03/18/23 @ 17:44 by Wanda Richardson MD) Osteoporosis Impaired fasting glucose Body mass index [BMI] 45.0-49.9, adult Elevated vitamin B12 level Essential hypertension Dyslipidemia Lumbar compression fracture High cholesterol HTN (hypertension) Surgical History History of bunionectomy History of hysterectomy Family History Father Myocardial infarction Mother Myocardial infarction Diabetes mellitus HTN (hypertension) Brother Bone cancer Brother No problems noted. Son No problems noted. Son No problems noted. Son No problems noted. Son No problems noted. Social History Housing: House Alcohol intake: current Patient Tobacco Use Status: Former Tobacco user Years Smoked: 3 yrs e-Cigarette/Vaping Use: Never Used Second Hand Smoke Exposure: No service: No Current occupational status: retired Cognitive needs: No Hearing needs: No Vision needs: Yes Questionnaire PHQ-9 Over the last 2 weeks, how often have you been bothered by any of the following problems? 1. Little interest or pleasure in doing things: not at all 2. Feeling down, depressed, or hopeless: not at all 3. Trouble falling or staying asleep, or sleeping too much: several days 4. Feeling tired or having little energy: not at all 5. Poor appetite or overeating: not at all 6. Feeling bad about yourself - or that you are a failure or have let yourself or your family down: not at all 7. Trouble concentrating on things, such as reading the newspaper or watching television: not at all 8. Moving or speaking so slowly that other people could have noticed. Or the opposite - being so fidgety or restless that you have been moving around a lot more than usual: not at all 9. Thoughts that you would be better off or of hurting yourself in some way: not at all Total score: 1 Depression Screening Interpretation: Negative Depression Screening Done: Yes 19590 - PHQ-9 Billing: Yes Source: Developed by Drs. Torey Osborne, Greer Gonzalez, Jun Saul and colleagues, with an educational ewa from [employer]. Thrive Questionnaire Date Thrive assessed: 03/09/23 I am a: Patient What is your living situation today?: I have a steady place to live Within the past 12 months, did the food you bought not last and you didn't have the money to get more?: Never true Within the past 12 months, did you worry whether your food would run out before you got money to buy more?: Never true Do you have trouble paying for medicines?: No Do you have trouble getting transportation to medical appointments?: No Do you have trouble paying your heating and electricity bill?: No Do you have trouble taking care of your child, family member or friend?: No Do you have trouble with day-to-day activities such as bathing, preparing meals, shopping, managing finances, etc.?: No Are you currently unemployed and looking for a job?: No Are you interested in more education?: No AUDIT C Alcohol Use Questionnaire (AUDIT-C) 1. How often do you have a drink containing alcohol?: 2-3 times a week 2. How many drinks containing alcohol do you have on a typical day when you are drinking?: 1 or 2 3. How often do you have six or more drinks on one occasion?: Never Total Score: 3 ANA-7 AMB Questionnaire ANA-7 Date ANA - 7 assessed: 03/09/23 Feeling nervous, anxious, or on edge: 0 = Not at all Not being able to stop or control worryin = Several days Worrying too much about different things: 1 = Several days Trouble relaxin = Not at all Being so restless that it is hard to sit still: 0 = Not at all Becoming easily annoyed or irritable: 0 = Not at all Feeling afraid as if something awful might happen: 0 = Not at all Total ANA-7 score (0-4 normal; 5-9 mild; 10-14 moderate; 15-21 severe): 2 Source: Developed by Drs. Torey Osborne, Greer Gonzalez, Jun Saul and colleagues, with an educational ewa from [employer]. ANA-7 Assessment Billing ANA-7 Assessment Tool: ANA-7 Assessment 98493 Review of Systems Const Denies headache(s) ENT Denies vertigo, Denies dizziness and Denies headache(s) Card Denies chest pain, Denies leg edema and Denies lightheadedness Resp Denies cough and Denies wheezing GI Denies abdominal pain, Denies constipation and Denies diarrhea Reports no additional complaints Musc Denies arthralgias, Denies joint swelling, Denies numbness and Denies tingling Neuro Denies vertigo, Denies dizziness, Denies headache(s), Denies numbness and Denies tingling Psych Reports no additional complaints Endo Reports no additional complaints Brandyn/Lymph Reports no additional complaints Aller/Immun Denies wheezing Physical exam (Primary Care) Vital Signs: Last Vital Signs Pulse 63 03/09/23 10:55 BP 130/68 03/09/23 10:55 Pulse Ox 97 03/09/23 10:55 Oxygen Delivery Method Room Air 03/09/23 10:55 BMI result Body Mass Index 49.8 Tobacco/Smoking Status: Tobacco use Status Tobacco use date assessed 03/09/23 03/09/23 11:01 Patient Tobacco Use Status Former Tobacco user 03/09/23 10:55 e-Cigarette/Vaping Use Never Used 03/09/23 10:55 PHQ-9: PHQ-9 Score PHQ-9: Total score 1 03/09/23 11:06 Depression Screening Interpretation: Negative Thrive Assessment: Date of Thrive Assessment Date Thrive assessed 03/09/23 03/09/23 11:06 Const General: comfortable, no acute distress, well developed, alert and awake Orientation/consciousness: patient oriented x3 HENMT Ears: EAC's normal General nose exam: Normal external nose present and No nasal discharge present Mouth: oropharynx normal and moist mucous membranes Throat: Yes posterior oropharynx normal Eyes General: appearance normal, both eyes and all related structures Neck Neck: Yes full ROM, Yes no lymphadenopathy and Yes supple Resp Effort & Inspection: normal respiratory effort and able to speak in complete sentences Auscultation: clear to auscultation bilaterally Cardio Rate: regular rate Rhythm: regular rhythm Heart sounds: S1 normal heart sound present and S2 normal heart sound present GI Inspection: Yes normal to inspection Palpation (GI): Soft to palpation, nontender and no masses Auscultation: normal bowel sounds Back/Spine/Pelvis Cervical Spine: cervical ROM normal Thoracic/Lumbar Spine: thoracic and lumbar spine normal to inspection Skin General skin exam: no rashes or lesions noted Neuro General: patient oriented x3 Cognition (Neuro): normal cognition Gait exam (Neuro): Normal gait present Motor exam (neuro): 5/5 motor strength present throughout Extrem General: Yes full ROM, Yes no joint enlargement, Yes no pedal edema and Yes no calf tenderness Results Reviewed Results Reviewed: Name: Marysol Galindo Age/Sex: 77/F : 1945 Unit#: [id number] Attend Dr: Wanda Richardson MD Re03/02/23 Status: DEP REF Location: [facility] Disch: SPEC : [id number] KATLYN: 03/02/23 STATUS: COMP REQ : [id number] RECD: 03/02/23-[address]: Wanda Richardson MD COMP: 03/02/23 ENTERED: 03/02/[address]: ORDERED: Met Prof Fast, AST, ALT, Lipid Panel, Vitamin D 25-OH Test Result Flag Reference Site Sodium 137 135-145 mmol/L Potassium 4.3 3.3-5.1 mmol/L CL 95 L 96-108 mmol/L CO2 30 H 22-29 mmol/L Gap 16 12-20 BUN 11 9-16 mg/dL Creat 0.68 0.5-1.4 mg/dL EGFR > 60 NOTE: For -Citizen Of [place] individuals, multiply the result by 1.210. Chronic Kidney Disease: Estimated GFR < 60 mL/min/1.73m2 Severe Kidney Disease: Estimated GFR < 15 mL/min/1.73m2 FBS 114 H 60-99 mg/dL A fasting glucose from 100-125 mg/dl is considered impaired (pre-diabetes). CA 10.1 8.4-10.2 mg/dL AST (GOT) 16 5-31 U/L ALT (GPT) 10 0-31 U/L Triglyceride 96 <150 mg/dL Desirable Triglyceride: less than 150 mg/dL Borderline High Triglyceride 150-199 mg/dL High Triglyceride: 200-499 mg/dL Very High Triglyceride: greater than or equal to 5OO mg/dL Cholesterol 192 <200 mg/dL Desirable Cholesterol: less than 200 mg/dL Borderline High Cholesterol: 200-239 mg/dL High Cholesterol: greater than 239 mg/dL LDL Calculated 92 <100 mg/dL Desirable LDL: less than 100 mg/dL Near Optimal/Above Optimal LDL: 110-129 mg/dL Borderline High LDL: 130-159 mg/dL High LDL: 160-189 mg/dL Very High LDL: greater than or equal to 190 mg/dL HDL 81 >40 mg/dL Desirable HDL: greater than 40 mg/dL Note: This HDL assay may give artificially low results in patients with liver disease. Vit D 25-OH Tot 37.2 >30 ng/mL Health Based Reference Values* < 20 ng/mL Deficient 20-30 ng/mL Insufficient > 30 ng/mL Sufficient Laboratory Tests 03/02/23 08:33 Estimat Average Glucose 108 Hemoglobin A1c % 5.4 Assessment and Plan Assessment & Plan (1) Osteoporosis: Code(s): M81.0 - Age-related osteoporosis without current pathological fracture Qualifiers: Osteoporosis type: age-related Presence of current pathological fracture: with current pathological fracture Encounter type: subsequent encounter Fracture healing: with routine healing Qualified Code(s): M80.00XD - Age-related osteoporosis with current pathological fracture, unspecified site, subsequent encounter for fracture with routine healing Plan: Discussed results of recent bone density scan which showed presence of osteoporosis in left femoral neck, will start on alendronate 70 mg per tablet to take once a week, in addition to taking vitamin-D 3 supplements at least 2000 units once a day and taking adequate calcium from dietary sources. Stressed importance also of getting regular weight-bearing exercise at least 3 to 4 times a week. Reviewed possible side effects of chronic, advised to take it 1st thing in the morning and at least an hour before eating and stay upright for at least an hour after taking the medication , only take it with glass of water. (2) Impaired fasting glucose: Code(s): R73.01 - Impaired fasting glucose Plan: Your fasting blood sugars are elevated above 100 mg/dL. But hemoglobin A1c is within normal limits. Impaired glucose metabolism O2 at risk for developing diabetes mellitus type 2, as well as heart attack and stroke later on. Lifestyle changes at just weight loss, healthy eating habits, and regular exercise are important, and can prevent the progression to diabetes (3) Essential hypertension: Code(s): I10 - Essential (primary) hypertension Plan: Blood pressure at goal of less than 130/80. Continue with atenolol and hydrochlorothiazide. Reinforced importance of following a low sodium diet, getting regular exercise, and lowering stress levels. (4) Dyslipidemia: Code(s): E78.5 - Hyperlipidemia, unspecified Plan: Reviewed recent fasting lipid profile with patient with levels within normal limits . Continue with simvastatin 20 mg daily at bedtime , in addition to adherence to low-cholesterol diet and regular exercise, at least 30 minutes 3 to 4 times a week. Advised patient to make healthy food choices, eat more fruits, vegetables, whole grains, wild caught fish and low-fat dairy. Limit amount of meat and fried or fatty food products, as well as processed foods and fast foods. Follow-up scheduled with repeat fasting lipid panel in 6 months. Orders: Orders Alanine Aminotransferase 09/27/23 M81.0 - Age-related osteoporosis without current pathological fracture, R73.01 - Impaired fasting glucose, M85.89 - Other specified disorders of bone density and structure, multiple sites, I10 - Essential (primary) hypertension, E78.5 - Hyperlipidemia, unspecified, S32.000A - Wedge compression fracture of unspecified lumbar vertebra, initial encounter for closed fracture Aspartate Amino Transferase 09/27/23 M81.0 - Age-related osteoporosis without current pathological fracture, R73.01 - Impaired fasting glucose, M85.89 - Other specified disorders of bone density and structure, multiple sites, I10 - Essential (primary) hypertension, E78.5 - Hyperlipidemia, unspecified, S32.000A - Wedge compression fracture of unspecified lumbar vertebra, initial encounter for closed fracture Basic Metabolic Panel Fasting 09/27/23 M81.0 - Age-related osteoporosis without current pathological fracture, R73.01 - Impaired fasting glucose, M85.89 - Other specified disorders of bone density and structure, multiple sites, I10 - Essential (primary) hypertension, E78.5 - Hyperlipidemia, unspecified, S32.000A - Wedge compression fracture of unspecified lumbar vertebra, initial encounter for closed fracture Lipid Panel 09/27/23 M81.0 - Age-related osteoporosis without current pathological fracture, R73.01 - Impaired fasting glucose, M85.89 - Other specified disorders of bone density and structure, multiple sites, I10 - Essential (primary) hypertension, E78.5 - Hyperlipidemia, unspecified, S32.000A - Wedge compression fracture of unspecified lumbar vertebra, initial encounter for closed fracture Vitamin D 25-OH Total 09/27/23 M81.0 - Age-related osteoporosis without current pathological fracture, R73.01 - Impaired fasting glucose, M85.89 - Other specified disorders of bone density and structure, multiple sites, I10 - Essential (primary) hypertension, E78.5 - Hyperlipidemia, unspecified, S32.000A - Wedge compression fracture of unspecified lumbar vertebra, initial encounter for closed fracture Hemoglobin A1c 09/27/23 M81.0 - Age-related osteoporosis without current pathological fracture, R73.01 - Impaired fasting glucose, M85.89 - Other specified disorders of bone density and structure, multiple sites, I10 - Essential (primary) hypertension, E78.5 - Hyperlipidemia, unspecified, S32.000A - Wedge compression fracture of unspecified lumbar vertebra, initial encounter for closed fracture Medications: New alendronate 70 mg PO QWEEK 13 tabs 4RF 3 months Coding Level of Care Code Est Pt Level 4 (01802) Diagnoses Age-related osteoporosis with current pathological fracture with routine healing, subsequent encounter M80.00XD Osteoporosis type: age-related Presence of current pathological fracture: with current pathological fracture Encounter type: subsequent encounter Fracture healing: with routine healing Impaired fasting glucose R73.01 Essential hypertension I10 Dyslipidemia E78.5 Additional Codes ANA-7 Assessment Billing - ANA-7 Assessment Tool: ANA-7 Assessment 51351 ([id number])
== END 2023-03-09 11:45 | disposition home or self-care (01) ==
PROVIDERS: PCP Internal Medicine; Visit Provider Internal Medicine
DX: R73.01 Impaired fasting glucose (principal); M80.00XD Age-related osteoporosis with current pathological fracture, unspecified site, subsequent encounter for fracture with routine healing; I10 Essential (primary) hypertension; E78.5 Hyperlipidemia, unspecified
CPT/HCPCS: 99214

== ENCOUNTER 2023-10-15 09:18 | Outpatient (AMB) | payer MEDICARE, SELFPAY ==
[2023-10-15 09:51] VITALS: BP 114/82; PULSE 72; TEMP 36.6; O2SAT 95; BMI 49.3
--- NOTE | 2023-10-15 09:51 | AM.OFFWIN_ITS ---
Intake Vital Signs 10/15/23 09:51 Height 5 ft 5 in Weight 296 lb BMI 49.3 BP 114/82 Blood Pressure Location Lt brachial Position Sitting Pulse 72 Pulse Source Pulse Oximeter Temp 97.8 F Temp Source Oral Pulse Oximetry (%) 95 Oxygen Delivery Method Room Air Intake Visit Reasons: EP rash Intake Note: pt c/o rash on back, sandra and itches. Spreading. Started a week ago Patient Tobacco Use Status: Former Tobacco user Allergies Penicillins [PENICILLINS] Allergy (Intermediate, Verified 10/15/23 09:54) SWELLING/RASH influenza virus vaccine ts [id number] (36 mos,up) [From Fluarix] Adverse Reaction (Verified 10/15/23 09:54) edema Do you need a note to return to daycare/school/sports/work: No HPI EP rash HPI Details This note is constructed using voice recognition software. While every effort has been made to ensure accuracy, annual greenhouse manager errors may have been included. The patient is a 78 year old female who presents to the clinic today with rash for the past 1 week starting on her back. She notes that the areas itchy, and irritated and moderately painful. She started triamcinolone cream which did not seem to make it any better, though it did seem to help the itch slightly. The rash has since spread further on her back, and into her arms and upper leg. She has had no new soaps, lotions, or other new exposures. She reports that she had a rash similar to this a couple of years ago and that is why she still has the triamcinolone cream. [facility] Medical History (Updated 03/18/23 @ 17:44 by Wanda Richardson MD) Osteoporosis Impaired fasting glucose Body mass index [BMI] 45.0-49.9, adult Elevated vitamin B12 level Essential hypertension Dyslipidemia Lumbar compression fracture High cholesterol HTN (hypertension) Surgical History History of bunionectomy History of hysterectomy Family History Father Myocardial infarction Mother Myocardial infarction Diabetes mellitus HTN (hypertension) Brother Bone cancer Brother No problems noted. Son No problems noted. Son No problems noted. Son No problems noted. Son No problems noted. Social History Housing: House Alcohol intake: current Patient Tobacco Use Status: Former Tobacco user Years Smoked: 3 yrs e-Cigarette/Vaping Use: Never Used Second Hand Smoke Exposure: No service: No Current occupational status: retired Cognitive needs: No Hearing needs: No Vision needs: Yes Review of Systems Const All systems reviewed & are unremarkable except as noted in HPI and below Physical Exam Vital Signs: Last Vital Signs Temp 97.8 F 10/15/23 09:51 Pulse 72 10/15/23 09:51 BP 114/82 10/15/23 09:51 Pulse Ox 95 10/15/23 09:51 Oxygen Delivery Method Room Air 10/15/23 09:51 BMI result Body Mass Index 49.3 Const General: cooperative, healthy appearing, comfortable, no acute distress and alert Orientation/consciousness: patient oriented x3 Limitations: no limitations Resp Effort & Inspection: normal respiratory effort and able to speak in complete sentences Auscultation: clear to auscultation bilaterally Cardio Jugular venous distension: no JVD Palpation: normal PMI Rate: regular rate Heart sounds: S1 normal heart sound present, S2 normal heart sound present, no click, no gallops, no murmurs and no rubs Skin Other: Flat erythematous macular rash primarily sized approximately 1-3 mm, with larger area to left upper back approximately 2 cm in diameter. No erythematous streaking, discharge, raised lesions, warmth. Neuro General: patient oriented x3 Psych Appearance: grossly normal Mental Status: mental status grossly normal Speech and movement: Normal speech and movement present Affect: normal affect Assessment & Plan Assessment & Plan (1) Dermatitis: Code(s): L30.9 - Dermatitis, unspecified Plan: Etiology unclear, given larger patch may be consistent with herald patch and viral etiology. We will symptomatically treat with prednisone burst. Advised patient to follow up with ongoing symptoms or failure to resolve. May continue with topical applications of calamine or similar for symptomatic management. Reviewed side effects of medication. Plan See above for full details and plan. Medications: New prednisone see taper instructions: 5 pills daily for 2 days, then 4 pills daily for 2 days, then 3 pills daily for 2 days, then 2 pills daily for 2 days, then 1 pill daily for 2 days. 10 mg PO DIRECTED 30 tabs 0RF Coding Level of Care Code Est Pt Level 3 (76788) Diagnoses Dermatitis L30.9
== END 2023-10-15 10:43 | disposition home or self-care (01) ==
PROVIDERS: PCP Internal Medicine; Visit Provider Registered Nurse
DX: L30.9 Dermatitis, unspecified (principal)
CPT/HCPCS: 99213

== ENCOUNTER 2023-10-30 09:08 | Outpatient (AMB) | payer MEDICARE, SELFPAY ==
--- NOTE | 2023-10-30 09:11 | AM.OFFWIN_ITS ---
Intake Vital Signs 10/30/23 09:12 Height 5 ft 5 in Weight 298 lb BMI 49.6 BP 118/76 Blood Pressure Location Lt brachial Position Sitting Pulse 79 Pulse Source Pulse Oximeter Temp 98.0 F Temp Source Oral Pulse Oximetry (%) 96 Oxygen Delivery Method Room Air Intake Visit Reasons: EP Rash Intake Note: pt c/o rash. Ongoing for almost 3 weeks Patient Tobacco Use Status: Former Tobacco user Allergies Penicillins [PENICILLINS] Allergy (Intermediate, Verified 10/30/23 09:12) SWELLING/RASH influenza virus vaccine ts [id number] (36 mos,up) [From [employer]] Adverse Reaction (Verified 10/30/23 09:12) edema Do you need a note to return to daycare/school/sports/work: No HPI HPI Comments History of Present Illness Details Patient is a 78-year-old female complaining of an itchy rash for the last 3 weeks. She states around October 07, this itchy rash started on her upper chest, upper back and low back, she came to this clinic on October 14 and was prescribed a 10 day taper of prednisone. She states she took the prednisone in full and it helped with the itchiness in the rash seemed to improve. However, she states the rash is persistent and came back as soon as she stopped the prednisone taper. She states it is on her upper chest, her entire back and legs and some on her right arm. She denies any new bath products, creams lotions laundry detergents or clothing. She states this happened to her last year and she was sent to [facility] where they were told they wanted to biopsy the rash but she said the rash cleared up before she could get an appointment so she would like an appointment [facility] but needs a referral. She states she is taking Zyrtec for the itching before bed because the itching seems to be worse at night. She also states she has triamcinolone cream at home from 2 years ago and she has been applying that with no relief in her symptoms. She denies any fever. [facility] Medical History (Updated 10/30/23 @ 09:49 by Aubrie Stephenson PA-C) Osteoporosis Impaired fasting glucose Body mass index [BMI] 45.0-49.9, adult Elevated vitamin B12 level Essential hypertension Dyslipidemia Lumbar compression fracture High cholesterol HTN (hypertension) Surgical History History of bunionectomy History of hysterectomy Family History Father Myocardial infarction Mother Myocardial infarction Diabetes mellitus HTN (hypertension) Brother Bone cancer Brother No problems noted. Son No problems noted. Son No problems noted. Son No problems noted. Son No problems noted. Social History Housing: House Alcohol intake: current Patient Tobacco Use Status: Former Tobacco user Years Smoked: 3 yrs e-Cigarette/Vaping Use: Never Used Second Hand Smoke Exposure: No service: No Current occupational status: retired Cognitive needs: No Hearing needs: No Vision needs: Yes Review of Systems Const All systems reviewed & are unremarkable except as noted in HPI and below Physical Exam Vital Signs: Last Vital Signs Temp 98.0 F 10/30/23 09:12 Pulse 79 10/30/23 09:12 BP 118/76 10/30/23 09:12 Pulse Ox 96 10/30/23 09:12 Oxygen Delivery Method Room Air 10/30/23 09:12 BMI result Body Mass Index 49.6 Const General: cooperative, healthy appearing, comfortable and no acute distress Orientation/consciousness: patient oriented x3 Limitations: no limitations HEENT Head: Yes normal to inspection Eyes General: appearance normal, both eyes and all related structures Resp Effort & Inspection: normal respiratory effort and able to speak in complete sentences Skin Other: Confluent maculopapular rash on back, upper right chest, upper right arm. No signs of infection noted, no warmth. Neuro General: patient oriented x3 Assessment & Plan Assessment & Plan (1) Allergic dermatitis: Code(s): L23.9 - Allergic contact dermatitis, unspecified cause Plan: Sent clobetasol cream and dermatology referral as patient requested. Plan See above Orders: Referrals Dermatology Referral L23.9 - Allergic contact dermatitis, unspecified cause Medications: New clobetasol 0.05% 1 appl topical BID 1 week 60 grams 0RF Coding Level of Care Code Est Pt Level 4 (58422) Diagnoses Allergic dermatitis L23.9
[2023-10-30 09:12] VITALS: BP 118/76; PULSE 79; TEMP 36.7; O2SAT 96; BMI 49.6
== END 2023-10-30 09:58 | disposition home or self-care (01) ==
PROVIDERS: PCP Internal Medicine; Visit Provider Physician Assistant
DX: L23.9 Allergic contact dermatitis, unspecified cause (principal)
CPT/HCPCS: 99214

== ENCOUNTER 2024-01-23 09:03 | Outpatient (REF) | payer MEDICARE, SELFPAY ==
[2024-01-23 10:12] LABS: Estimated Average Glucose 111 mg/dL; Hemoglobin A1C 139.3536 umol/L; Hemoglobin A1c % 5.5 % (<6.0)
[2024-01-23 10:35] LABS: Alanine Aminotransferase 18 U/L (0-31); Anion Gap 16 (12-20); Aspartate Amino Transferase 27 U/L (5-31); Blood Urea Nitrogen 10 mg/dL (9-16); Calcium 9.8 mg/dL (8.4-10.2); Carbon Dioxide 30 mmol/L (22-29); Chloride 99 mmol/L (96-108); Cholesterol 193 mg/dL (<200); Estimated Glomerular Filt Rate > 60; Glucose Fasting 109 mg/dL (60-99); HDL Cholesterol 69 mg/dL (>40); LDL Cholesterol Calculated 105 mg/dL (<100); Potassium 3.8 mmol/L (3.3-5.1); Sodium 141 mmol/L (135-145); Triglycerides 98 mg/dL (<150)
[2024-01-23 10:51] LABS: Vitamin D 25-OH Total 39.3 ng/mL (>30)
== END 2024-01-23 09:04 | disposition home or self-care (01) ==
LOC: HO.HMGCLDS 09:03
PROVIDERS: PCP Internal Medicine; Visit Provider Internal Medicine
DX: M81.0 Age-related osteoporosis without current pathological fracture (principal); R73.01 Impaired fasting glucose; M85.89 Other specified disorders of bone density and structure, multiple sites; I10 Essential (primary) hypertension; E78.5 Hyperlipidemia, unspecified; S32.000A Wedge compression fracture of unspecified lumbar vertebra, initial encounter for closed fracture
CPT/HCPCS: 36415; 80048; 80061; 82306; 83036; 84450; 84460

== ENCOUNTER 2024-01-30 09:13 | Outpatient (AMB) | payer MEDICARE, SELFPAY ==
[2024-01-30 09:19] VITALS: BP 128/72; PULSE 68; O2SAT 94; BMI 48.3
--- NOTE | 2024-01-30 09:19 | MHC.PC.OV ---
Vital Signs 01/30/24 09:19 Height 5 ft 5 in Weight 290 lb BMI 48.3 BP 128/72 Blood Pressure Location Rt radial Position Sitting Pulse 68 Pulse Source Pulse Oximeter Pulse Oximetry (%) 94 Oxygen Delivery Method Room Air Intake Visit Reasons: f/u labs Intake Note: Pt is here today for her lab f/u Allergies Penicillins [PENICILLINS] Allergy (Intermediate, Verified 01/30/24 09:27) SWELLING/RASH influenza virus vaccine ts [id number] (36 mos,up) [From Fluarix] Adverse Reaction (Verified 01/30/24 09:27) edema Medication List - Last Reconciled 01/30/24 by Wanda Richardson MD acetaminophen ER (Tylenol Arthritis Pain) 650 mg PO Q12H alendronate 70 mg PO QWEEK 3 months atenolol 50 mg PO DAILY clobetasol 0.05% 1 appl topical BID 1 week diclofenac sodium 1% 4 grams topical QID PRN hydrochlorothiazide 25 mg PO DAILY ibuprofen (Motrin IB) 400 mg PO Q8H sennosides-docusate sodium 8.6-50 mg (Senokot-S) 1 tab-cap PO BEDTIME PRN simvastatin 20 mg PO QPM triamcinolone acetonide 0.1% 1 appl topical DAILY 15 days Tobacco use date assessed: 01/30/24 Fall risk assessment: No Falls in past year Last assessed Fall Risk: 01/30/24 Dental Screening Dental Screen Date: 01/30/24 Did you have a dental visit in the last 12 months?: No Did you have a dental problem in the last 6 months where you did not have access to dental care?: No Was dental information given to patient?: Patient has dentist HPI f/u labs HPI Details The patient is a 78-year-old female presenting today for a follow up visit. Has Hypertension , with blood pressure stable and controlled on Atenolol and HCTZ. Has Hypercholesterolemia , with latest fasting lipids within normal limits , currently on simvastatin and needs a refill . She has Osteoporosisi , started on Alendronate a year ago , tolerating medication well, and is due for a follow up Dexa scan , but wants it scheduled in the spring , when it's not snowing . She has an umbilical hernia present for approximately 15 years and is associated with episodes of pain suggestive of bowel retention. The patient has experienced abdominal pain, which improves with lying down and has been has resolved , after she started taking fiber supplements and stool softeners, with regular bowel movements now. . [facility] Medical History (Updated 01/30/24 @ 09:58 by Wanda Richardson MD) Umbilical hernia Encounter for monitoring alendronate therapy Osteoporosis Impaired fasting glucose Body mass index [BMI] 45.0-49.9, adult Elevated vitamin B12 level Essential hypertension Dyslipidemia Lumbar compression fracture High cholesterol HTN (hypertension) Surgical History History of bunionectomy History of hysterectomy Family History Father Myocardial infarction Mother Myocardial infarction Diabetes mellitus HTN (hypertension) Brother Bone cancer Brother No problems noted. Son No problems noted. Son No problems noted. Son No problems noted. Son No problems noted. Social History Housing: House Alcohol intake: current Patient Tobacco Use Status: Former Tobacco user Years Smoked: 3 yrs e-Cigarette/Vaping Use: Never Used Second Hand Smoke Exposure: No service: No Current occupational status: retired Cognitive needs: No Hearing needs: No Vision needs: Yes Questionnaire PHQ-9 Over the last 2 weeks, how often have you been bothered by any of the following problems? 1. Little interest or pleasure in doing things: not at all 2. Feeling down, depressed, or hopeless: not at all 3. Trouble falling or staying asleep, or sleeping too much: several days 4. Feeling tired or having little energy: several days 5. Poor appetite or overeating: not at all 6. Feeling bad about yourself - or that you are a failure or have let yourself or your family down: not at all 7. Trouble concentrating on things, such as reading the newspaper or watching television: not at all 8. Moving or speaking so slowly that other people could have noticed. Or the opposite - being so fidgety or restless that you have been moving around a lot more than usual: not at all 9. Thoughts that you would be better off or of hurting yourself in some way: not at all Total score: 2 Depression Screening Interpretation: Negative Depression Screening Done: Yes 93560 - PHQ-9 Billing: Yes Source: Developed by Drs. Torey Osborne, Greer Gonzalez, Jun Saul and colleagues, with an educational ewa from [employer]. Thrive Questionnaire Date Thrive assessed: 03/09/23 I am a: Patient What is your living situation today?: I have a steady place to live Within the past 12 months, did the food you bought not last and you didn't have the money to get more?: Never true Within the past 12 months, did you worry whether your food would run out before you got money to buy more?: Never true Do you have trouble paying for medicines?: No Do you have trouble getting transportation to medical appointments?: No Do you have trouble paying your heating and electricity bill?: No Do you have trouble taking care of your child, family member or friend?: No Do you have trouble with day-to-day activities such as bathing, preparing meals, shopping, managing finances, etc.?: No Are you currently unemployed and looking for a job?: No Are you interested in more education?: No Please select the resources that you would like help with: None Currently or been in a relationship where the following occur: No concerns reported THRIVE Score: 0 AUDIT C Alcohol Use Questionnaire (AUDIT-C) 1. How often do you have a drink containing alcohol?: Never Total Score: 0 ANA-7 AMB Questionnaire ANA-7 Date ANA - 7 assessed: 03/09/23 Feeling nervous, anxious, or on edge: 0 = Not at all Not being able to stop or control worryin = Several days Worrying too much about different things: 1 = Several days Trouble relaxin = Not at all Being so restless that it is hard to sit still: 0 = Not at all Becoming easily annoyed or irritable: 0 = Not at all Feeling afraid as if something awful might happen: 0 = Not at all Total ANA-7 score (0-4 normal; 5-9 mild; 10-14 moderate; 15-21 severe): 2 Source: Developed by Greer Murphy Kurt Kroenke and colleagues, with an educational ewa from [employer]. Review of Systems Const Denies headache(s) ENT Denies vertigo, Denies dizziness and Denies headache(s) Card Denies chest pain, Denies leg edema and Denies lightheadedness Resp Denies cough and Denies wheezing GI Reports as per HPI Reports no additional complaints Musc Denies joint swelling, Denies numbness, Reports stiffness and Denies tingling Neuro Denies vertigo, Denies dizziness, Denies headache(s), Denies numbness and Denies tingling Psych Reports no additional complaints Endo Reports no additional complaints Brandyn/Lymph Reports no additional complaints Aller/Immun Denies wheezing Physical exam (Primary Care) Vital Signs: Last Vital Signs Pulse 68 01/30/24 09:19 BP 128/72 01/30/24 09:19 Pulse Ox 94 01/30/24 09:19 Oxygen Delivery Method Room Air 01/30/24 09:19 BMI result Body Mass Index 48.3 Tobacco/Smoking Status: Tobacco use Status Tobacco use date assessed 01/30/24 01/30/24 09:22 Patient Tobacco Use Status Former Tobacco user 01/30/24 09:22 e-Cigarette/Vaping Use Never Used 01/30/24 09:22 PHQ-9: PHQ-9 Score PHQ-9: Total score 2 01/30/24 09:59 Depression Screening Interpretation: Negative Thrive Assessment: Date of Thrive Assessment Date Thrive assessed 03/09/23 01/30/24 09:22 Currently or been in a relationship where the following occur: No concerns reported Const General: comfortable, no acute distress, well developed, alert and awake Orientation/consciousness: patient oriented x3 HENMT Ears: EAC's normal General nose exam: Normal external nose present and No nasal discharge present Mouth: oropharynx normal and moist mucous membranes Throat: Yes posterior oropharynx normal Eyes General: appearance normal, both eyes and all related structures Neck Neck: Yes full ROM, Yes no lymphadenopathy and Yes supple Resp Effort & Inspection: normal respiratory effort and able to speak in complete sentences Auscultation: clear to auscultation bilaterally Cardio Rate: regular rate Rhythm: regular rhythm Heart sounds: S1 normal heart sound present and S2 normal heart sound present GI Other: large umbilical hernia Inspection: Yes Abdominal panniculus present and Yes obesity Palpation (GI): Soft to palpation and nontender Auscultation: normal bowel sounds Skin General skin exam: no rashes or lesions noted Neuro General: patient oriented x3 Cognition (Neuro): normal cognition Gait exam (Neuro): Normal gait present Motor exam (neuro): 5/5 motor strength present throughout Extrem General: Yes full ROM, Yes no joint enlargement, Yes no pedal edema and Yes no calf tenderness Psych Appearance: grossly normal and well kempt Mental Status: mental status grossly normal Speech and movement: Normal speech and movement present Affect: normal affect Results Reviewed Results Reviewed: Name: Marysol Galindo Age/Sex: 78/F : 1945 Unit#: [id number] Attend Dr: Wanda Richardson MD Re01/23/24 Status: DEP [facility] SPEC : [id number] KATLYN: 01/23/24 STATUS: COMP REQ : [id number] RECD: 01/23/[address]: Wanda Richardson MD COMP: 01/23/24 ENTERED: 01/23/[address]: ORDERED: Met Prof Fast, AST, ALT, Lipid Panel, Vitamin D 25-OH Test Result Flag Reference Sodium 141 135-145 mmol/L Potassium 3.8 3.3-5.1 mmol/L CL 99 96-108 mmol/L CO2 30 H 22-29 mmol/L Gap 16 12-20 BUN 10 9-16 mg/dL Creat 0.64 0.5-1.4 mg/dL eGFR > 60 Chronic Kidney Disease: Estimated GFR < 60 mL/min/1.73m2 Severe Kidney Disease: Estimated GFR < 15 mL/min/1.73m2 FBS 109 H 60-99 mg/dL A fasting glucose from 100-125 mg/dl is considered impaired (pre-diabetes). CA 9.8 8.4-10.2 mg/dL AST (GOT) 27 5-31 U/L ALT (GPT) 18 0-31 U/L Triglyceride 98 <150 mg/dL Desirable Triglyceride: less than 150 mg/dL Borderline High Triglyceride 150-199 mg/dL High Triglyceride: 200-499 mg/dL Very High Triglyceride: greater than or equal to 5OO mg/dL Cholesterol 193 <200 mg/dL Desirable Cholesterol: less than 200 mg/dL Borderline High Cholesterol: 200-239 mg/dL High Cholesterol: greater than 239 mg/dL LDL Calculated 105 H <100 mg/dL Desirable LDL: less than 100 mg/dL Near Optimal/Above Optimal LDL: 110-129 mg/dL Borderline High LDL: 130-159 mg/dL High LDL: 160-189 mg/dL Very High LDL: greater than or equal to 190 mg/dL HDL 69 >40 mg/dL Desirable HDL: greater than 40 mg/dL Note: This HDL assay may give artificially low results in patients with liver disease. Vit D 25-OH Tot 39.3 >30 ng/mL Health Based Reference Values* < 20 ng/mL Deficient 20-30 ng/mL Insufficient > 30 ng/mL Sufficient Coding Level of Care Code Est Pt Level 4 (27411) Complex EM visit Add On G2211 Diagnoses Age-related osteoporosis with current pathological fracture with routine healing, subsequent encounter M80.00XD Encounter type: subsequent encounter Fracture healing: with routine healing Osteoporosis type: age-related Presence of current pathological fracture: with current pathological fracture Encounter for monitoring alendronate therapy Z51.81; Z79.83 Umbilical hernia without obstruction and without gangrene K42.9 Obstruction and gangrene presence: without obstruction or gangrene Dyslipidemia E78.5 Essential hypertension I10 Body mass index [BMI] 45.0-49.9, adult Z68.42 Additional Codes PHQ-9 - 30490 - PHQ-9 Billing: Yes ([id number]) Assessment & Plan Assessment & Plan (1) Osteoporosis: Code(s): M81.0 - Age-related osteoporosis without current pathological fracture Category: Medical Qualifiers: Encounter type: subsequent encounter Fracture healing: with routine healing Osteoporosis type: age-related Presence of current pathological fracture: with current pathological fracture Qualified Code(s): M80.00XD - Age-related osteoporosis with current pathological fracture, unspecified site, subsequent encounter for fracture with routine healing (2) Encounter for monitoring alendronate therapy: Code(s): Z51.81 - Encounter for therapeutic drug level monitoring; Z79.83 - half-way (current) use of bisphosphonates Category: Medical (3) Umbilical hernia: Code(s): K42.9 - Umbilical hernia without obstruction or gangrene Category: Medical Qualifiers: Obstruction and gangrene presence: without obstruction or gangrene Qualified Code(s): K42.9 - Umbilical hernia without obstruction or gangrene (4) Dyslipidemia: Code(s): E78.5 - Hyperlipidemia, unspecified Category: Medical (5) Essential hypertension: Code(s): I10 - Essential (primary) hypertension Category: Medical (6) Body mass index [BMI] 45.0-49.9, adult: Code(s): Z68.42 - Body mass index [BMI] 45.0-49.9, adult Category: Medical Plan - Umbilical Hernia: Referral to surgeon for evaluation. Educate patient on the urgency if symptoms of bowel obstruction occur. - Constipation: Continue with Metamucil and Colace, ensure adequate hydration - Osteoporosis: Continue with alendronate weekly. Schedule bone density test for May 2024 for monitoring. - Essential Hypertension: Continue atenolol and hydrochlorothiazide. - Hyperlipidemia: Continue simvastatin. Encourage diet modification to manage LDL levels. - Plan follow-up visit in June 2024, ensuring prior completion of blood work. - Await contact for scheduling from the surgeon?s office and be prepared to reschedule if inclement weather occurs. Patient was informed and verbally consented to the use of an ambient scribe for clinic note documentation during this visit. Orders: Orders Alanine Aminotransferase 05/27/24 E78.5 - Hyperlipidemia, unspecified, I10 - Essential (primary) hypertension, M80.00XD - Age-related osteoporosis with current pathological fracture, unspecified site, subsequent encounter for fracture with routine healing, R73.01 - Impaired fasting glucose, Z68.42 - Body mass index [BMI] 45.0-49.9, adult Aspartate Amino Transferase 05/27/24 E78.5 - Hyperlipidemia, unspecified, I10 - Essential (primary) hypertension, M80.00XD - Age-related osteoporosis with current pathological fracture, unspecified site, subsequent encounter for fracture with routine healing, R73.01 - Impaired fasting glucose, Z68.42 - Body mass index [BMI] 45.0-49.9, adult Lipid Panel 05/27/24 E78.5 - Hyperlipidemia, unspecified, I10 - Essential (primary) hypertension, M80.00XD - Age-related osteoporosis with current pathological fracture, unspecified site, subsequent encounter for fracture with routine healing, R73.01 - Impaired fasting glucose, Z68.42 - Body mass index [BMI] 45.0-49.9, adult Vitamin D 25-OH Total 05/27/24 E78.5 - Hyperlipidemia, unspecified, I10 - Essential (primary) hypertension, M80.00XD - Age-related osteoporosis with current pathological fracture, unspecified site, subsequent encounter for fracture with routine healing, R73.01 - Impaired fasting glucose, Z68.42 - Body mass index [BMI] 45.0-49.9, adult XR DEXA axial skeleton 4 Months M80.00XD - Age-related osteoporosis with current pathological fracture, unspecified site, subsequent encounter for fracture with routine healing, Z51.81 - Encounter for therapeutic drug level monitoring, 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 Basic Metabolic Panel Fasting 05/27/24 E78.5 - Hyperlipidemia, unspecified, I10 - Essential (primary) hypertension, M80.00XD - Age-related osteoporosis with current pathological fracture, unspecified site, subsequent encounter for fracture with routine healing, R73.01 - Impaired fasting glucose, Z68.42 - Body mass index [BMI] 45.0-49.9, adult Vitamin B12 and Folate 05/27/24 E78.5 - Hyperlipidemia, unspecified, I10 - Essential (primary) hypertension, M80.00XD - Age-related osteoporosis with current pathological fracture, unspecified site, subsequent encounter for fracture with routine healing, R73.01 - Impaired fasting glucose, Z68.42 - Body mass index [BMI] 45.0-49.9, adult Referrals General Surgery Referral K42.9 - Umbilical hernia without obstruction or gangrene Medications: Refilled atenolol 50 mg PO DAILY 90 caps 3RF I10 - Essential (primary) hypertension hydrochlorothiazide 25 mg PO DAILY 90 caps 3RF I10 - Essential (primary) hypertension simvastatin 20 mg PO QPM 90 tabs 3RF E78.5 - Hyperlipidemia, unspecified alendronate 70 mg PO QWEEK 13 tabs 4RF 3 months
== END 2024-01-30 09:52 | disposition home or self-care (01) ==
PROVIDERS: PCP Internal Medicine; Visit Provider Internal Medicine
DX: K42.9 Umbilical hernia without obstruction or gangrene (principal); I10 Essential (primary) hypertension; Z68.42 Body mass index [BMI] 45.0-49.9, adult; M80.00XD Age-related osteoporosis with current pathological fracture, unspecified site, subsequent encounter for fracture with routine healing; Z51.81 Encounter for therapeutic drug level monitoring; Z79.83 Long term (current) use of bisphosphonates; E78.5 Hyperlipidemia, unspecified

== ENCOUNTER → 2024-01-30 09:13 | Outpatient (BNVA) | payer MEDICARE, SELFPAY | PROVIDERS: PCP Internal Medicine; Visit Provider Internal Medicine | DX: E78.5 Hyperlipidemia, unspecified (principal); I10 Essential (primary) hypertension; K42.9 Umbilical hernia without obstruction or gangrene; Z79.83 Long term (current) use of bisphosphonates | CPT/HCPCS: 96127; 99212 ==

== ENCOUNTER 2024-05-05 09:37 | Outpatient (AMB) | payer MEDICARE, SELFPAY ==
--- NOTE | 2024-05-05 10:05 | MHC.OFFVIS ---
Intake Visit Reasons: Umbilical hernia Intake Note: Patient referred by pcp Dr. Richardson for Umbilical hernia. Present for over 15yrs. Patient c/o: bothersome at times. Bulging out for the past year. 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 He has had this over 15 years. It has markedly increased in size over the last several months. She would like to have it repaired. Patient was tolerating her diet. He has occasional symptoms from this hernia which he thinks may affect her GI system. Chart was reviewed and patient evaluated. Patient was a history of hypertension. High BMI [facility] Medical History (Updated 01/30/24 @ 09:58 by Wanda Richardson MD) Umbilical hernia Encounter for monitoring alendronate therapy Osteoporosis Impaired fasting glucose Body mass index [BMI] 45.0-49.9, adult Elevated vitamin B12 level Essential hypertension Dyslipidemia Lumbar compression fracture High cholesterol HTN (hypertension) Surgical History (Updated 05/05/24 @ 10:13 by Paramjit Choi MD) History of bunionectomy History of hysterectomy Family History Father Myocardial infarction Mother Myocardial infarction Diabetes mellitus HTN (hypertension) Brother Bone cancer Brother No problems noted. Son No problems noted. Son No problems noted. Son No problems noted. Son No problems noted. Social History Housing: House Alcohol intake: current Patient Tobacco Use Status: Former Tobacco user Years Smoked: 3 yrs e-Cigarette/Vaping Use: Never Used Second Hand Smoke Exposure: No service: No Current occupational status: retired Cognitive needs: No Hearing needs: No Vision needs: Yes Physical Exam Const Other: Very corpulent female. Using a walker for ambulation. Chest Other: Chest breath sounds bilaterally, HS 1 in 2 GI Other: Extremely corpulent abdomen with marked pannus. Patient was a massive umbilical hernia. This hernia sac measures roughly 15 x 10 cm. Difficult to reduce but hernia defect seems to be smaller on the inside than actual sac Assessment & Plan Assessment & Plan (1) Umbilical hernia, incarcerated: Code(s): K42.0 - Umbilical hernia with obstruction, without gangrene Category: Surgical Plan Risks, benefits, and alternatives of open incarcerated umbilical hernia repair with mesh were reviewed with the patient and included but not limited to bleeding, infection, recurrence, numbness, pain, scarring, bowel injury and the patient wished to proceed. All questions answered. Arrangements were made for this on a day which is convenient for her. Coding Level of Care Code New Pt Level 5 (93741) Diagnoses Umbilical hernia, incarcerated K42.0
== END 2024-05-05 10:10 | disposition home or self-care (01) ==
PROVIDERS: PCP Internal Medicine; Referring Provider Internal Medicine; Visit Provider Surgery
DX: K42.0 Umbilical hernia with obstruction, without gangrene (principal)
CPT/HCPCS: 99204

== ENCOUNTER → 2024-05-05 09:37 | Outpatient (BNVA) | payer MEDICARE, SELFPAY | PROVIDERS: PCP Internal Medicine; Referring Provider Internal Medicine; Visit Provider Surgery | DX: K42.0 Umbilical hernia with obstruction, without gangrene (principal) | CPT/HCPCS: 99202 ==

== ENCOUNTER 2024-06-05 05:34 | Day surgery (SDC) | payer MEDICARE, SELFPAY ==
[2024-06-03 10:36] VITALS: BMI 48.3
--- NOTE | 2024-06-04 09:18 | MHC.SHP ---
Pre-Procedural Eval Section A - 24 Hr Update-Section A only Date of Service: 06/05/24 The patient is an INPATIENT: No Changes since office visit: No Cold of Flu in the past 2 weeks, No New Medical Problems, No Changes in Medication and No Patient answered all questions Section B - Complete if H&P > 30 days Chief Complaint: Umbilical hernia with obstruction, without gangren Allergies: Allergies Allergy/AdvReac Type Severity Reaction Status Date / Time Penicillins [PENICILLINS] Allergy Intermediate SWELLING/RA Verified 05/05/24 10:07 influenza virus vaccine ts AdvReac edema Verified 05/05/24 10:07 [id number] (36 mos,up) [From [facility]] Review of Systems Sugical H&P ROS: Negative: Constitution, Cardiovascular, Respiratory, Neurological, Psychiatric, Hem-Onc, Allergic/Immunologic, Gastrointestinal, Genitourinary, Musculoskeletal, Integumentary, Endocrine and Eyes/Ears/Nose/Throat Exam Surgical H&P Exam: Normal: HEENT, Normal: Heart, Normal: Lungs, Normal: Extremities, Normal: Abdomen, Normal: Skin and Normal: Neurological Plan I have reviewed the history and physical and performed a pertinent physical examination on my patient. No changes have occurred unless specified. Time Spent With Patient Time: Total time managing care of this patient today ____ minutes.
[2024-06-04 09:38] VITALS: BMI 48.3
[2024-06-05] VITALS (9 sets, daily range): BP systolic 92–117; BP diastolic 54–75; PULSE 63–78; RESP 16–18; TEMP 36.2–36.8; O2SAT 93–98; BMI 48.5
[2024-06-05] MEDS: Lactated Ringers 1,000 ML 100 ML IVCONT (06:43)
--- NOTE | 2024-06-05 07:20 | P.CONAN_ITS ---
Documented by User: Aida Manning NP 06/03/24 13:32 HPI - Anesthesia Eval Consult details Narrative: 78yo F for Large Incarcerated Repair Hernia Umbilical with Mesh PMFSH Active Problems Active Problems: All Active Problems Umbilical hernia, incarcerated (Acute) Umbilical hernia (Acute) Encounter for monitoring alendronate therapy (Acute) Allergic dermatitis (Acute) Osteoporosis (Acute) Impaired fasting glucose (Acute) Body mass index [BMI] 45.0-49.9, adult (Acute) Essential hypertension (Acute) Dyslipidemia (Acute) Lumbar compression fracture (Acute) Past Medical History Medical History (Updated 01/30/24 @ 09:58 by Wanda Richardson MD) Umbilical hernia Encounter for monitoring alendronate therapy Osteoporosis Impaired fasting glucose Body mass index [BMI] 45.0-49.9, adult Elevated vitamin B12 level Essential hypertension Dyslipidemia Lumbar compression fracture High cholesterol HTN (hypertension) Family History Family History Father Myocardial infarction Mother Myocardial infarction Diabetes mellitus HTN (hypertension) Brother Bone cancer Brother No problems noted. Son No problems noted. Son No problems noted. Son No problems noted. Son No problems noted. Surgical History Surgical History (Updated 06/05/24 @ 06:28 by Maritza Toure RN) H/O toe surgery History of bunionectomy History of hysterectomy Social History Social History Household Members Other:: adult son Housing: House Are you a primary care transition coordinator to a significant other at home: No Alcohol intake: current Patient Tobacco Use Status: Former Tobacco user Tobacco use type: Cigarette Years Smoked: 3 yrs e-Cigarette/Vaping Use: Never Used Second Hand Smoke Exposure: No Use of substances other than those prescribed or required for medical reasons: No Have you been hit, kicked, punched, or otherwise hurt by someone within the past year? If so, by whom?: No Are you DNR?: No Advance Directives: No Advance Directives Information Provided: Yes Advance Directives on File: No service: No Current occupational status: retired Cognitive needs: No Hearing needs: No Vision needs: Yes Meds Allergies Allergy/AdvReac Type Severity Reaction Status Date / Time Penicillins [PENICILLINS] Allergy Intermediate SWELLING/RA Verified 06/05/24 06:28 SH Influenza Virus Vaccines AdvReac Severe edema, Verified 06/05/24 06:28 weakness Home Medications ?Medication ?Instructions ?Recorded ?Confirmed ?Last Taken ?Type ibuprofen 200 mg tablet (Motrin IB) 400 mg PO Q8H PRN Pain 04/30/20 06/05/24 05/05/24 History acetaminophen 650 mg 650 mg PO Q12H PRN Pain 01/16/22 06/05/24 Unknown History tablet,extended release (Tylenol Arthritis Pain) cholecalciferol (vitamin D3) 50 50 mcg PO DAILY 06/04/24 06/05/24 Unknown History mcg (2,000 unit) capsule (Vitamin D3) cyanocobalamin (vitamin B-12) 2,500 mcg sublingual 2XW 06/04/24 06/05/24 Unknown History 2,500 mcg sublingual tablet (Vitamin B-12) Exam Height,Weight and Vital Signs: Height 5 ft 5 in Weight 131.542 kg Pertinent Lab Results Pertinent Lab Results: Laboratory Tests 01/23/24 09:09 Sodium 141 Potassium 3.8 Chloride 99 Carbon Dioxide 30 H BUN 10 Creatinine 0.64 Assessment and Plan Assessment Anesthesia Assessment: Chart Reviewed Documented by User: Bria Odom DO 06/05/24 07:47 [facility] Past Medical History Medical History (Updated 01/30/24 @ 09:58 by Wanda Richardson MD) Umbilical hernia Encounter for monitoring alendronate therapy Osteoporosis Impaired fasting glucose Body mass index [BMI] 45.0-49.9, adult Elevated vitamin B12 level Essential hypertension Dyslipidemia Lumbar compression fracture High cholesterol HTN (hypertension) Family History Family History Father Myocardial infarction Mother Myocardial infarction Diabetes mellitus HTN (hypertension) Brother Bone cancer Brother No problems noted. Son No problems noted. Son No problems noted. Son No problems noted. Son No problems noted. Family history of problems with anesthesia: No Surgical History Surgical History (Updated 06/05/24 @ 06:28 by Maritza Toure RN) H/O toe surgery History of bunionectomy History of hysterectomy History of Problems with Anesthesia: No Social History Social History Household Members Other:: adult son Housing: House Are you a primary care transition coordinator to a significant other at home: No Alcohol intake: current Patient Tobacco Use Status: Former Tobacco user Tobacco use type: Cigarette Years Smoked: 3 yrs e-Cigarette/Vaping Use: Never Used Second Hand Smoke Exposure: No Use of substances other than those prescribed or required for medical reasons: No Have you been hit, kicked, punched, or otherwise hurt by someone within the past year? If so, by whom?: No Are you DNR?: No Advance Directives: No Advance Directives Information Provided: Yes Advance Directives on File: No service: No Current occupational status: retired Cognitive needs: No Hearing needs: No Vision needs: Yes Meds Allergies Allergy/AdvReac Type Severity Reaction Status Date / Time Penicillins [PENICILLINS] Allergy Intermediate SWELLING/RA Verified 06/05/24 06:28 SH Influenza Virus Vaccines AdvReac Severe edema, Verified 06/05/24 06:28 weakness Home Medications ?Medication ?Instructions ?Recorded ?Confirmed ?Last Taken ?Type ibuprofen 200 mg tablet (Motrin IB) 400 mg PO Q8H PRN Pain 04/30/20 06/05/24 05/05/24 History acetaminophen 650 mg 650 mg PO Q12H PRN Pain 01/16/22 06/05/24 Unknown History tablet,extended release (Tylenol Arthritis Pain) cholecalciferol (vitamin D3) 50 50 mcg PO DAILY 06/04/24 06/05/24 Unknown History mcg (2,000 unit) capsule (Vitamin D3) cyanocobalamin (vitamin B-12) 2,500 mcg sublingual 2XW 06/04/24 06/05/24 Unknown History 2,500 mcg sublingual tablet (Vitamin B-12) Exam Exam Date and Time: 06/05/24 0715 Height,Weight and Vital Signs: Height 5 ft 5 in Weight 131.542 kg Vital Signs Temperature 97.2 F 06/05/24 06:24 Pulse Rate 71 06/05/24 06:24 Respiratory Rate 18 06/05/24 06:24 Blood Pressure 117/75 06/05/24 06:24 Pulse Oximetry 98 06/05/24 06:24 Oxygen Delivery Method Room Air 06/05/24 06:24 Temperature 97.2 F 06/05/24 06:24 Pulse Rate 71 06/05/24 06:24 Respiratory Rate 18 06/05/24 06:24 Blood Pressure 117/75 06/05/24 06:24 Pulse Oximetry 98 06/05/24 06:24 Oxygen Delivery Method Room Air 06/05/24 06:24 Airway Mallampati Class: III TM Dist: <=3cm Neck ROM: Limited Denture: Upper Heart: S1S2 Lungs: CTAB Assessment and Plan Assessment Anesthesia Assessment: Anesthesia Plan Discussed and Chart Reviewed Final Anesthetic Review Family History of Problems with Anesthesia: No History of Problems with Anesthesia: No NPO: Yes ASA Class: III Final Preanesthetic Review: No Changes in Pt Med Stat, Meds/Allgs Chart Reviewed, Consent Obtained/Reviewed and Anes Risks/Benef Reviewed Patient Risk: Intermediate Procedure Risk: Low Anesthetic Plan Anesthetic Plan: GA and Agree w/ Assess. and Plan Disposition: Standard PACU
[2024-06-05] MEDS: Clindamycin Phosphate/D5W 900 MG/50 ML PIGGYBACK 50 MG IV (07:35)
--- NOTE | 2024-06-05 08:48 | P.OP_ITS ---
Operative Note Operative Note Date of Service: 06/05/24 Narrative: Preoperative diagnosis: [] Enormous incarcerated umbilical hernia Postop diagnosis: [] The same Procedure [] open umbilical herniorrhaphy with Bard mesh Surgeon: [] Jimbo Brineyard Supervisor: [] Blanquita Type of Anesthesia: [] General Indication for surgery: [] Markedly corpulent abdomen. Roughly 8 cm incarcerated umbilical hernia with omental contents and small bowel contents Findings: [] Patient brought to the operating room, placed on operative table supine position, after an adequate level general anesthesia was induced, the patient's abdomen is prepped and draped in usual sterile fashion using a supraumbilical curvilinear incision, this carried down through skin, subcutaneous tissue, were a massive multilobulated incarcerated umbilical hernia was identified. The sac was dissected off the posterior aspect of the umbilicus and circumferentially dissected from the surrounding soft tissue down to the fascia. Sac was opened and circumferentially amputated using Bovie. Incarcerated omental and small bowel contents were from the sac. Omentum which was incarcerated was clamped, cut, and tied using 2-0 Vicryl ties and specimen sent with hernia sac and remainder returned. Adhesed small-bowel to the sac was also taken down using combination of sharp, blunt, and Bovie dissection. Bowel integrity was maintained throughout procedure. Fascia margins were circumferentially cleared and inappropriately sized Bard dual mesh placed. Four quarters tacking used stitch sutures of 0 Ethibond were initially placed followed by interrupted 0 Ethibond suture through the superficial layer of the mesh the surrounding fascia. At completion of procedure, mesh was in good position with no tension or gaps. Wound was irrigated, secured hemostasis, and closed in the following manner; posterior aspect of the umbilicus was tacked to the wound floor using interrupted 3-0 Vicryl suture. Skin was closed using interrupted inverted dermal 3-0 Vicryl sutures followed by Steri-Strips and sterile dressings. Wound was infiltrated 0.5% Marcaine at completion. Steri-Strips and sterile dressings were applied along with the abdominal wall binder. Sponge, needle, and instrument counts reported correct. Patient tolerated the procedure well and emerged from anesthesia stable condition. EBL minimal
== END 2024-06-05 12:10 | disposition home or self-care (01) ==
PROVIDERS: PCP Internal Medicine; Visit Provider Surgery
PROC: (CPT 49594; principal; 2024-06-05 07:30)
DX: K42.0 Umbilical hernia with obstruction, without gangrene (principal); E65 Localized adiposity; R73.01 Impaired fasting glucose; I10 Essential (primary) hypertension; E78.00 Pure hypercholesterolemia, unspecified; M81.0 Age-related osteoporosis without current pathological fracture; Z87.310 Personal history of (healed) osteoporosis fracture; Z79.899 Other long term (current) drug therapy; Z88.0 Allergy status to penicillin; Z88.7 Allergy status to serum and vaccine; Z98.890 Other specified postprocedural states; Z87.891 Personal history of nicotine dependence
CPT/HCPCS: 49594; 88302; C1781; J0131; J0330; J0736; J1100; J2003; J2405; J2704; J2795; J3010

== ENCOUNTER → 2024-06-05 05:34 | Outpatient (BNV) | payer MEDICARE, SELFPAY | PROVIDERS: PCP Internal Medicine; Visit Provider Surgery | DX: K42.0 Umbilical hernia with obstruction, without gangrene (principal) | CPT/HCPCS: 49593 ==

== ENCOUNTER 2024-06-17 13:12 | Outpatient (AMB) | payer MEDICARE, SELFPAY ==
--- NOTE | 2024-06-17 13:22 | A.OFFVIS_ITS ---
Vital Signs 06/17/24 13:24 Height 5 ft 3 in Weight 290 lb BMI 51.4 BP 118/68 Blood Pressure Location Lt brachial Position Sitting Pulse 68 Intake Visit Reasons: S/P Lg. umbilical hernia w/mesh Intake Note: Patient here open umbilical herniorrhaphy with Bard mesh. Reports incision healing well. Patient c/o: no concerns. No longer taking rx pain meds. Surgery: 06-05-2024 Aircraft Refueller Required: No Accompanied by: Self / Same As Patient Allergies Penicillins [PENICILLINS] Allergy (Intermediate, Verified 06/17/24 13:23) SWELLING/RASH Influenza Virus Vaccines Adverse Reaction (Severe, Verified 06/17/24 13:23) edema, weakness HPI Comments Details: Patient presents status post repair of a large umbilical hernia. She is doing well. She is tolerating a diet. Having regular bowel habits. She has minimal incisional discomfort. Although she is not overly active she is slowly increasing her activity level. [facility] Medical History (Updated 01/30/24 @ 09:58 by Wanda Richardson MD) Umbilical hernia Encounter for monitoring alendronate therapy Osteoporosis Impaired fasting glucose Body mass index [BMI] 45.0-49.9, adult Elevated vitamin B12 level Essential hypertension Dyslipidemia Lumbar compression fracture High cholesterol HTN (hypertension) Surgical History (Updated 06/17/24 @ 13:40 by Paramjit Choi MD) H/O toe surgery History of bunionectomy History of hysterectomy Family History Father Myocardial infarction Mother Myocardial infarction Diabetes mellitus HTN (hypertension) Brother Bone cancer Brother No problems noted. Son No problems noted. Son No problems noted. Son No problems noted. Son No problems noted. Social History Household Members Other:: adult son Housing: House Are you a primary animal care specialist to a significant other at home: No Alcohol intake: current Patient Tobacco Use Status: Former Tobacco user Tobacco use type: Cigarette Years Smoked: 3 yrs e-Cigarette/Vaping Use: Never Used Second Hand Smoke Exposure: No service: No Current occupational status: retired Cognitive needs: No Hearing needs: No Vision needs: Yes Physical Exam Vital Signs: Last Vital Signs Pulse 68 06/17/24 13:24 BP 118/68 06/17/24 13:24 BMI result Body Mass Index 51.4 GI Other: Abdomen very corpulent, soft. Incision clean dry and intact healing well Assessment & Plan Assessment & Plan (1) Status post umbilical hernia repair, follow-up exam: Code(s): Z09 - Encounter for follow-up examination after completed treatment for conditions other than malignant neoplasm Category: Medical Plan Patient was been given local instructions including avoiding strenuous activities next few weeks time and will otherwise follow-up p.r.n.. All questions answered Coding Level of Care Code Global (69953) Diagnoses Status post umbilical hernia repair, follow-up exam Z09
[2024-06-17 13:24] VITALS: BP 118/68; PULSE 68; BMI 51.4
== END 2024-06-17 13:43 | disposition home or self-care (01) ==
LOC: HO.HGS 13:13
PROVIDERS: PCP Internal Medicine; Visit Provider Surgery
DX: Z09 Encounter for follow-up examination after completed treatment for conditions other than malignant neoplasm (principal)
CPT/HCPCS: 99212

== ENCOUNTER → 2024-06-17 13:12 | Outpatient (BNVA) | payer MEDICARE, SELFPAY | PROVIDERS: PCP Internal Medicine; Visit Provider Surgery | DX: Z09 Encounter for follow-up examination after completed treatment for conditions other than malignant neoplasm (principal); Z87.19 Personal history of other diseases of the digestive system; Z98.890 Other specified postprocedural states | CPT/HCPCS: 99212 ==

== ENCOUNTER 2024-09-26 08:51 | Outpatient (REF) | payer MEDICARE, SELFPAY ==
[2024-09-26 11:30] LABS: Alanine Aminotransferase 25 U/L (0-31); Anion Gap 13 (12-20); Aspartate Amino Transferase 32 U/L (5-31); Blood Urea Nitrogen 10 mg/dL (9-16); Calcium 9.4 mg/dL (8.4-10.2); Carbon Dioxide 32 mmol/L (22-29); Chloride 96 mmol/L (96-108); Cholesterol 191 mg/dL (<200); Estimated Glomerular Filt Rate > 60; HDL Cholesterol 74 mg/dL (>40); Potassium 4.0 mmol/L (3.3-5.1); Sodium 137 mmol/L (135-145); Triglycerides 83 mg/dL (<150)
[2024-09-26 11:44] LABS: Folate 5.3 ng/mL (> or = 4.0); Vitamin B12 640 pg/mL (200-900)
== END 2024-09-26 08:52 | disposition home or self-care (01) ==
LOC: HO.HMGCLDS 08:51
PROVIDERS: PCP Internal Medicine; Visit Provider Internal Medicine
DX: I10 Essential (primary) hypertension (principal); E78.5 Hyperlipidemia, unspecified; M80.00XD Age-related osteoporosis with current pathological fracture, unspecified site, subsequent encounter for fracture with routine healing; R73.01 Impaired fasting glucose; Z68.42 Body mass index [BMI] 45.0-49.9, adult
CPT/HCPCS: 36415; 80048; 80061; 82306; 82607; 82746; 84450; 84460

== ENCOUNTER 2024-10-01 11:43 | Outpatient (AMB) | payer MEDICARE, SELFPAY ==
[2024-10-01 12:09] VITALS: BP 108/62; PULSE 70; O2SAT 98; BMI 51.9
--- NOTE | 2024-10-01 12:09 | A.OFFPC_ITS ---
Vital Signs 10/01/24 12:09 Height 5 ft 3 in Weight 293 lb BMI 51.9 BP 108/62 Blood Pressure Location Lt brachial Position Sitting Pulse 70 Pulse Source Pulse Oximeter Pulse Oximetry (%) 98 Intake Visit Reasons: follow up- see comments Allergies Penicillins (PENICILLINS) Allergy (Intermediate, Verified 10/01/24 12:20) SWELLING/RASH Influenza Virus Vaccines Adverse Reaction (Severe, Verified 10/01/24 12:20) edema, weakness Medication List - Last Reconciled 10/01/24 by Wanda Richardson MD acetaminophen ER (Tylenol Arthritis Pain) 650 mg PO Q12H PRN atenolol 50 mg PO DAILY cholecalciferol (vitamin D3) (Vitamin D3) 50 mcg PO DAILY clobetasol 0.05% topical cyanocobalamin (vitamin B-12) (Vitamin B-12) 2,500 mcg sublingual 2XW hydrochlorothiazide 25 mg PO DAILY ibuprofen (Motrin IB) 400 mg PO Q8H PRN sennosides-docusate sodium 8.6-50 mg (Senokot-S) 1 tab-cap PO BEDTIME PRN simvastatin 20 mg PO QPM triamcinolone acetonide 0.1% topical Tobacco use date assessed: 10/01/24 Fall risk assessment: No Falls in past year Last assessed Fall Risk: 10/01/24 Dental Screening Dental Screen Date: 10/01/24 Did you have a dental visit in the last 12 months?: Yes Did you have a dental problem in the last 6 months where you did not have access to dental care?: No Was dental information given to patient?: Patient has dentist HPI follow up- see comments HPI Details 79 year-old female presenting today for her physical exam.. Has Hypertension , with blood pressure stable and controlled on Atenolol and HCTZ. Has Hypercholesterolemia , with latest fasting lipids within normal limits , currently on simvastatin . She has Osteoporosisi , started on Alendronate a year ago , but did not get it refilled, has been out of it for the last 3 months. Due now for her repeat bone density scan. Up-to-date with her screening mammogram [facility] Medical History Umbilical hernia Encounter for monitoring alendronate therapy Osteoporosis Impaired fasting glucose Body mass index [BMI] 45.0-49.9, adult Elevated vitamin B12 level Essential hypertension Dyslipidemia Lumbar compression fracture High cholesterol HTN (hypertension) Surgical History Hx of umbilical hernia repair H/O toe surgery History of bunionectomy History of hysterectomy Family History Father Myocardial infarction Mother Myocardial infarction Diabetes mellitus HTN (hypertension) Brother Bone cancer Brother No problems noted. Son No problems noted. Son No problems noted. Son No problems noted. Son No problems noted. Social History Household Members Other:: adult son Housing: House Are you a primary youth career specialist to a significant other at home: No Alcohol intake: current Patient Tobacco Use Status: Former Tobacco user Tobacco use type: Cigarette Years Smoked: 3 yrs e-Cigarette/Vaping Use: Never Used Second Hand Smoke Exposure: No service: No Current occupational status: retired Cognitive needs: No Hearing needs: No Vision needs: Yes Questionnaire PHQ-9 Over the last 2 weeks, how often have you been bothered by any of the following problems? 1. Little interest or pleasure in doing things: not at all 2. Feeling down, depressed, or hopeless: not at all 3. Trouble falling or staying asleep, or sleeping too much: several days 4. Feeling tired or having little energy: several days 5. Poor appetite or overeating: not at all 6. Feeling bad about yourself - or that you are a failure or have let yourself or your family down: not at all 7. Trouble concentrating on things, such as reading the newspaper or watching television: not at all 8. Moving or speaking so slowly that other people could have noticed. Or the opposite - being so fidgety or restless that you have been moving around a lot more than usual: not at all 9. Thoughts that you would be better off or of hurting yourself in some way: not at all Total score: 2 Depression Screening Interpretation: Negative Depression Screening Done: Yes 72551 - PHQ-9 Billing: Yes Source: Developed by Drs. Torey Osborne, Greer Jun Valle and colleagues, with an educational ewa from [employer]. Thrive Questionnaire Date Thrive assessed: 10/01/24 I am a: Patient What is your living situation today?: I have a steady place to live Within the past 12 months, did the food you bought not last and you didn't have the money to get more?: Never true Within the past 12 months, did you worry whether your food would run out before you got money to buy more?: I choose not to answer this question Do you have trouble paying for medicines?: No Do you have trouble getting transportation to medical appointments?: No Do you have trouble paying your heating and electricity bill?: No Do you have trouble taking care of your child, family member or friend?: I choose not to answer this question Do you have trouble with day-to-day activities such as bathing, preparing meals, shopping, managing finances, etc.?: No Are you currently unemployed and looking for a job?: I choose not to answer this question Are you interested in more education?: I choose not to answer this question Please select the resources that you would like help with: None Currently or been in a relationship where the following occur: I choose not to answer THRIVE Score: 0 AUDIT C Alcohol Use Questionnaire (AUDIT-C) 1. How often do you have a drink containing alcohol?: 2-3 times a week 2. How many drinks containing alcohol do you have on a typical day when you are drinking?: 1 or 2 3. How often do you have six or more drinks on one occasion?: Never Total Score: 3 Score Reviewed/Action Taken: Yes ANA-7 AMB Questionnaire ANA-7 Date ANA - 7 assessed: 10/01/24 Feeling nervous, anxious, or on edge: 0 = Not at all Not being able to stop or control worryin = Not at all Worrying too much about different things: 0 = Not at all Trouble relaxin = Not at all Being so restless that it is hard to sit still: 0 = Not at all Becoming easily annoyed or irritable: 0 = Not at all Feeling afraid as if something awful might happen: 0 = Not at all Total ANA-7 score (0-4 normal; 5-9 mild; 10-14 moderate; 15-21 severe): 0 Source: Developed by Drs. Torey Osborne, Greer Gonzalez, Jun Saul and colleagues, with an educational ewa from [employer] ANA-7 Assessment Billing ANA-7 Assessment Tool: ANA-7 Assessment 01395 Physical exam (Primary Care) Vital Signs: Last Vital Signs Pulse 70 10/01/24 12:09 BP 108/62 10/01/24 12:09 Pulse Ox 98 10/01/24 12:09 BMI result Body Mass Index 51.9 Tobacco/Smoking Status: Tobacco use Status Tobacco use date assessed 10/01/24 10/01/24 12:14 Patient Tobacco Use Status Former Tobacco user 10/01/24 12:14 Tobacco use type Cigarette 10/01/24 12:14 e-Cigarette/Vaping Use Never Used 10/01/24 12:14 PHQ-9: PHQ-9 Score PHQ-9: Total score 2 10/01/24 12:29 Depression Screening Interpretation: Negative Thrive Assessment: Date of Thrive Assessment Date Thrive assessed 10/01/24 10/01/24 12:14 Currently or been in a relationship where the following occur: I choose not to answer Immunizations pneumoc 20-jaja conj-dip cr(PF) 0.5 mL IM syringe Performing Provider: Wanda Richardson MD Performing Location[place] [facility] [place] [facility] Administered by: Jaky Rosen CMA on 10/01/24 12:41 Dose Route Admin Location Dispensed Lot Number Expiration Date [facility] [employer] Developer 0.5 mL IM Right Deltoid 0.5 mL [id number] 10/01/24 6830-4596-67 [employer] /[employer] Total Dispensed Waste 0.5 mL 0 % VIS Given Date VIS Provided VIS Publication Date 10/01/24 Single Vaccine 24 Eligibility Eligibility Date Funding Source Not VFC Eligible 10/01/24 Private Results Reviewed Results Reviewed: Name: Marysol Galinod Age/Sex: 79/F : 1945 Unit#: [id number] Attend Dr: Wanda Richardson MD Re09/26/24 Status: DEP REF Location: [facility] Disch: SPEC : [id number] KATLYN: 09/26/24 STATUS: COMP REQ : [id number] RECD: 09/26/24-[address]: Wanda Richardson MD COMP: 09/26/24 ENTERED: 09/26/[address] [facility] [address]: ORDERED: Met Prof Fast, AST, ALT, Lipid Panel, Vitamin D 25-OH Test Result Flag Reference Sodium 137 135-145 mmol/L Potassium 4.0 3.3-5.1 mmol/L CL 96 96-108 mmol/L CO2 32 H 22-29 mmol/L Gap 13 12-20 BUN 10 9-16 mg/dL Creat 0.59 0.5-1.4 mg/dL eGFR > 60 Chronic Kidney Disease: Estimated GFR < 60 mL/min/1.73m2 Severe Kidney Disease: Estimated GFR < 15 mL/min/1.73m2 FBS 115 H 60-99 mg/dL A fasting glucose from 100-125 mg/dl is considered impaired (pre-diabetes). CA 9.4 8.4-10.2 mg/dL AST (GOT) 32 H 5-31 U/L ALT (GPT) 25 0-31 U/L Triglyceride 83 <150 mg/dL Desirable Triglyceride: less than 150 mg/dL Borderline High Triglyceride 150-199 mg/dL High Triglyceride: 200-499 mg/dL Very High Triglyceride: greater than or equal to 5OO mg/dL Cholesterol 191 <200 mg/dL Desirable Cholesterol: less than 200 mg/dL Borderline High Cholesterol: 200-239 mg/dL High Cholesterol: greater than 239 mg/dL LDL Calculated 101 H <100 mg/dL Desirable LDL: less than 100 mg/dL Near Optimal/Above Optimal LDL: 110-129 mg/dL Borderline High LDL: 130-159 mg/dL High LDL: 160-189 mg/dL Very High LDL: greater than or equal to 190 mg/dL HDL 74 >40 mg/dL Desirable HDL: greater than 40 mg/dL Note: This HDL assay may give artificially low results in patients with liver disease. Vitamin D 25-OH 50.7 >30 ng/mL Health Based Reference Values* < 20 ng/mL Deficient 20-30 ng/mL Insufficient > 30 ng/mL Sufficient Coding Level of Care Code Est Pt Prev Care >65y(76819) Diagnoses Dyslipidemia E78.5 Essential hypertension I10 Body mass index [BMI] 45.0-49.9, adult Z68.42 Impaired fasting glucose R73.01 Age-related osteoporosis with current pathological fracture with routine healing, subsequent encounter M80.00XD Osteoporosis type: age-related Presence of current pathological fracture: with current pathological fracture Encounter type: subsequent encounter Fracture healing: with routine healing Annual visit for general adult medical examination with abnormal findings Z00.01 Additional Codes ANA-7 Assessment Billing - ANA-7 Assessment Tool: ANA-7 Assessment 20019 ([id number]) PHQ-9 - 67988 - PHQ-9 Billing: Yes ([id number]) Assessment & Plan Assessment & Plan (1) Dyslipidemia: Code(s): E78.5 - Hyperlipidemia, unspecified Category: Medical (2) Essential hypertension: Code(s): I10 - Essential (primary) hypertension Category: Medical (3) Body mass index [BMI] 45.0-49.9, adult: Code(s): Z68.42 - Body mass index [BMI] 45.0-49.9, adult Category: Medical (4) Impaired fasting glucose: Code(s): R73.01 - Impaired fasting glucose Category: Medical (5) Osteoporosis: Code(s): M81.0 - Age-related osteoporosis without current pathological fracture Category: Medical Qualifiers: Osteoporosis type: age-related Presence of current pathological fracture: with current pathological fracture Encounter type: subsequent encounter Fracture healing: with routine healing Qualified Code(s): M80.00XD - Age-related osteoporosis with current pathological fracture, unspecified site, subsequent encounter for fracture with routine healing (6) Annual visit for general adult medical examination with abnormal findings: Code(s): Z00.01 - Encounter for general adult medical examination with abnormal findings Orders: Orders Lipid Panel 01/03/25 E66.01 - Morbid (severe) obesity due to excess calories, E78.5 - Hyperlipidemia, unspecified, I10 - Essential (primary) hypertension, M80.00XD - Age-related osteoporosis with current pathological fracture, unspecified site, subsequent encounter for fracture with routine healing, R73.01 - Impaired fasting glucose, Z00.01 - Encounter for general adult medical examination with abnormal findings, Z68.42 - Body mass index [BMI] 45.0-49.9, adult Hemoglobin A1c 01/03/25 E66.01 - Morbid (severe) obesity due to excess calories, E78.5 - Hyperlipidemia, unspecified, I10 - Essential (primary) hypertension, M80.00XD - Age-related osteoporosis with current pathological fr acture, unspecified site, subsequent encounter for fracture with routine healing, R73.01 - Impaired fasting glucose, Z00.01 - Encounter for general adult medical examination with abnormal findings, Z68.42 - Body mass index [BMI] 45.0-49.9, adult Aspartate Amino Transferase 01/03/25 E66.01 - Morbid (severe) obesity due to excess calories, E78.5 - Hyperlipidemia, unspecified, I10 - Essential (primary) hypertension, M80.00XD - Age-related osteoporosis with current pathological fracture, unspecified site, subsequent encounter for fracture with routine healing, R73.01 - Impaired fasting glucose, Z00.01 - Encounter for general adult medical examination with abnormal findings, Z68.42 - Body mass index [BMI] 45.0-49.9, adult Vitamin D 25-OH Total 01/03/25 E66.01 - Morbid (severe) obesity due to excess calories, E78.5 - Hyperlipidemia, unspecified, I10 - Essential (primary) hypertension, M80.00XD - Age-related osteoporosis with current pathological fracture, unspecified site, subsequent encounter for fracture with routine healing, R73.01 - Impaired fasting glucose, Z00.01 - Encounter for general adult medical examination with abnormal findings, Z68.42 - Body mass index [BMI] 45.0-49.9, adult Pneumococcal 20 Immunization Today Z23 - Encounter for immunization Basic Metabolic Panel Fasting 01/03/25 E66.01 - Morbid (severe) obesity due to excess calories, E78.5 - Hyperlipidemia, unspecified, I10 - Essential (primary) hypertension, M80.00XD - Age-related osteoporosis with current pathological fracture, unspecified site, subsequent encounter for fracture with routine healing, R73.01 - Impaired fasting glucose, Z00.01 - Encounter for general adult medical examination with abnormal findings, Z68.42 - Body mass index [BMI] 45.0-49.9, adult Alanine Aminotransferase 01/03/25 E66.01 - Morbid (severe) obesity due to excess calories, E78.5 - Hyperlipidemia, unspecified, I10 - Essential (primary) hypertension, M80.00XD - Age-related osteoporosis with current pathological fracture, unspecified site, subsequent encounter for fracture with routine healing, R73.01 - Impaired fasting glucose, Z00.01 - Encounter for general adult medical examination with abnormal findings, Z68.42 - Body mass index [BMI] 45.0-49.9, adult
== END 2024-10-01 12:44 | disposition home or self-care (01) ==
LOC: HO.HMCC 11:43
PROVIDERS: PCP Internal Medicine; Visit Provider Internal Medicine
DX: Z23 Encounter for immunization (principal)

== ENCOUNTER → 2024-10-01 11:43 | Outpatient (BNVA) | payer MEDICARE, SELFPAY | PROVIDERS: PCP Internal Medicine; Visit Provider Internal Medicine | DX: Z00.01 Encounter for general adult medical examination with abnormal findings (principal); E78.5 Hyperlipidemia, unspecified; I10 Essential (primary) hypertension; E66.01 Morbid (severe) obesity due to excess calories; R73.01 Impaired fasting glucose; M80.00XD Age-related osteoporosis with current pathological fracture, unspecified site, subsequent encounter for fracture with routine healing; X58.XXXD Exposure to other specified factors, subsequent encounter; Z23 Encounter for immunization; Z68.43 Body mass index [BMI] 50.0-59.9, adult | CPT/HCPCS: 90471; 90677; 96127; 99397 ==

== ENCOUNTER 2024-12-30 09:38 | Outpatient (REF) | payer MEDICARE, SELFPAY ==
--- NOTE | ~2024-12-30 | MM_ITS ---
EXAMINATION: DXA BONE DENSITY AXIAL HISTORY: M80.00XD - Age-related osteoporosis with current pathological fracture, ... TECHNIQUE: [employer] Dual energy absorptiometry (DEXA) of the lumbar spine, total left hip, and femoral neck was performed. COMPARISON: Comparison is made with the prior examination dated 12/28/2022. FINDINGS: The bone mineral density of the lumbar spine is 1.116 g/cm2, corresponding to a T-score of -0.5, and a Z-score of 0.1. This is indicative of normal bone mineral density. This represents a BMD change of 8.8% compared to the prior exam. This is statistically significant. The bone mineral density of the left total hip is 0.821 g/cm2, corresponding to a T-score of -1.5, and a Z-score of -0.3. This is indicative of osteopenia. This represents a BMD change of 20.2% compared to the prior exam. This is statistically significant. The bone mineral density of the left femoral neck is 0.793 g/cm2, corresponding to a T-score of -1.8, and a Z-score of -0.4. This is indicative of osteopenia. This represents a BMD change of 44.4% compared to the prior exam. MM/XR DEXA axial skeleton IMPRESSION: Based on bone mineral density, and according to World Health Organization (WHO) criteria, the diagnosis is consistent with osteopenia. Statistically, 68% of repeat scans fall within 1 SD (+/- 0.010 g/cm2 for AP spine L1-L4) and 1 SD (+/- 0.012 g/cm2 for femur total) [employer] is a trademark of the [employer], a World Health Organization (WHO) Collaborating Center. Electronically signed by: Torey Gorman MD 12/30/2024 10:11 AM [facility] [place] [facility] [place]
== END 2024-12-30 09:39 | disposition home or self-care (01) ==
LOC: HO.MAMMO 09:38
PROVIDERS: PCP Internal Medicine; Visit Provider Internal Medicine
DX: Z13.820 Encounter for screening for osteoporosis (principal); M80.00XD Age-related osteoporosis with current pathological fracture, unspecified site, subsequent encounter for fracture with routine healing; Z79.83 Long term (current) use of bisphosphonates
CPT/HCPCS: 77080

== ENCOUNTER → 2024-12-30 10:00 | Outpatient (BNV) | payer MEDICARE, SELFPAY | PROVIDERS: PCP Internal Medicine; Visit Provider Radiology Diagnostic Radiology | DX: E28.39 Other primary ovarian failure (principal) | CPT/HCPCS: 77080 ==

== ENCOUNTER 2025-01-08 08:48 | Outpatient (REF) | payer MEDICARE, SELFPAY ==
[2025-01-08 11:22] LABS: Alanine Aminotransferase 20 U/L (0-31); Anion Gap 14 (12-20); Aspartate Amino Transferase 30 U/L (5-31); Blood Urea Nitrogen 10 mg/dL (9-16); Calcium 9.8 mg/dL (8.4-10.2); Carbon Dioxide 30 mmol/L (22-29); Chloride 97 mmol/L (96-108); Cholesterol 193 mg/dL (<200); Estimated Glomerular Filt Rate > 60; HDL Cholesterol 84 mg/dL (>40); Potassium 4.2 mmol/L (3.3-5.1); Sodium 137 mmol/L (135-145); Triglycerides 84 mg/dL (<150)
== END 2025-01-08 08:49 | disposition home or self-care (01) ==
LOC: HO.HMGCLDS 08:48
PROVIDERS: PCP Internal Medicine; Visit Provider Internal Medicine
DX: Z00.01 Encounter for general adult medical examination with abnormal findings (principal); M80.00XD Age-related osteoporosis with current pathological fracture, unspecified site, subsequent encounter for fracture with routine healing; E66.01 Morbid (severe) obesity due to excess calories; I10 Essential (primary) hypertension; E78.5 Hyperlipidemia, unspecified; R73.01 Impaired fasting glucose; Z68.42 Body mass index [BMI] 45.0-49.9, adult
CPT/HCPCS: 36415; 80048; 80061; 82306; 83036; 84450; 84460

== ENCOUNTER 2025-01-15 11:24 | Outpatient (AMB) | payer MEDICARE, SELFPAY ==
--- NOTE | 2025-01-15 11:49 | A.OFFPC_ITS ---
Vital Signs 01/15/25 11:54 Height 5 ft 3 in Weight 295 lb BMI 52.3 BP 110/66 Blood Pressure Location Lt radial Position Sitting Respiration 16 Pulse 63 Pulse Source Pulse Oximeter Temp 97.4 F Temp Source Oral Pulse Oximetry (%) 94 Oxygen Delivery Method Room Air Intake Visit Reasons: Follow-up lipids, bone density scan results Intake Note: Pt is here today for her f/u labs Body Masker Required: No Allergies Penicillins (PENICILLINS) Allergy (Intermediate, Verified 01/15/25 12:12) SWELLING/RASH Influenza Virus Vaccines Adverse Reaction (Severe, Verified 01/15/25 12:12) edema, weakness Medication List - Last Reconciled 01/15/25 by Wanda Richardson MD acetaminophen ER (Tylenol Arthritis Pain) 650 mg PO Q12H PRN alendronate 70 mg PO QWEEK 3 months atenolol 50 mg PO DAILY cholecalciferol (vitamin D3) (Vitamin D3) 50 mcg PO DAILY clobetasol 0.05% topical cyanocobalamin (vitamin B-12) (Vitamin B-12) 2,500 mcg sublingual 2XW hydrochlorothiazide 25 mg PO DAILY ibuprofen (Motrin IB) 400 mg PO Q8H PRN magnesium 250 mg PO DAILY sennosides-docusate sodium 8.6-50 mg (Senokot-S) 1 tab-cap PO BEDTIME PRN simvastatin 20 mg PO QPM Tobacco use date assessed: 01/15/25 Fall risk assessment: No Falls in past year Last assessed Fall Risk: 01/15/25 Dental Screening Dental Screen Date: 01/15/25 Did you have a dental visit in the last 12 months?: Yes Did you have a dental problem in the last 6 months where you did not have access to dental care?: No Was dental information given to patient?: Patient has dentist HPI Follow-up lipids, bone density scan results HPI Details 79-year-old lady with past medical histo ry significant for hypertension, dyslipidemia, and osteoporosis in left femoral neck and left femur, here today for her follow-up. Has been compliant with taking her m edications, but admits to not getting much exercise lately. Recent bone density scan showed improvement in bone density, now showing osteopenia in left femoral neck and left femur and normal bone density in lumbar spine. Patient tolerating alendronate well. [facility] Medical History History of osteoporosis Osteopenia of multiple sites Morbid obesity due to excess calories Umbilical hernia Encounter for monitoring alendronate therapy Osteoporosis Impaired fasting glucose Body mass index [BMI] 45.0-49.9, adult Elevated vitamin B12 level Essential hypertension Dyslipidemia Lumbar compression fracture High cholesterol HTN (hypertension) Surgical History Hx of umbilical hernia repair H/O toe surgery History of bunionectomy History of hysterectomy Family History Father Myocardial infarction Mother Myocardial infarction Diabetes mellitus HTN (hypertension) Brother Bone cancer Brother No problems noted. Son No problems noted. Son No problems noted. Son No problems noted. Son No problems noted. Social History Household Members Other:: adult son Housing: House Are you a primary director of patient care to a significant other at home: No Alcohol intake: current Patient Tobacco Use Status: Former Tobacco user Tobacco use type: Cigarette Years Smoked: 3 yrs e-Cigarette/Vaping Use: Never Used Second Hand Smoke Exposure: No service: No Current occupational status: retired Cognitive needs: No Hearing needs: No Vision needs: Yes Questionnaire PHQ-9 Over the last 2 weeks, how often have you been bothered by any of the following problems? 1. Little interest or pleasure in doing things: not at all 2. Feeling down, depressed, or hopeless: not at all 3. Trouble falling or staying asleep, or sleeping too much: several days 4. Feeling tired or having little energy: several days 5. Poor appetite or overeating: not at all 6. Feeling bad about yourself - or that you are a failure or have let yourself or your family down: not at all 7. Trouble concentrating on things, such as reading the newspaper or watching television: not at all 8. Moving or speaking so slowly that other people could have noticed. Or the opposite - being so fidgety or restless that you have been moving around a lot more than usual: not at all 9. Thoughts that you would be better off or of hurting yourself in some way: not at all Total score: 2 Depression Screening Interpretation: Negative Depression Screening Done: Yes Source: Developed by Drs. Torey Osborne, Jun Cruz and colleagues, with an educational ewa from [employer]. Thrive Questionnaire Date Thrive assessed: 10/01/24 I am a: Patient What is your living situation today?: I have a steady place to live Within the past 12 months, did the food you bought not last and you didn't have the money to get more?: Never true Within the past 12 months, did you worry whether your food would run out before you got money to buy more?: I choose not to answer this question Do you have trouble paying for medicines?: No Do you have trouble getting transportation to medical appointments?: No Do you have trouble paying your heating and electricity bill?: No Do you have trouble taking care of your child, family member or friend?: I choose not to answer this question Do you have trouble with day-to-day activities such as bathing, preparing meals, shopping, managing finances, etc.?: No Are you currently unemployed and looking for a job?: I choose not to answer this question Are you interested in more education?: I choose not to answer this question Please select the resources that you would like help with: None Currently or been in a relationship where the following occur: I choose not to answer THRIVE Score: 0 ANA-7 AMB Questionnaire ANA-7 Date ANA - 7 assessed: 10/01/24 Feeling nervous, anxious, or on edge: 0 = Not at all Not being able to stop or control worryin = Not at all Worrying too much about different things: 0 = Not at all Trouble relaxin = Not at all Being so restless that it is hard to sit still: 0 = Not at all Becoming easily annoyed or irritable: 0 = Not at all Feeling afraid as if something awful might happen: 0 = Not at all Total ANA-7 score (0-4 normal; 5-9 mild; 10-14 moderate; 15-21 severe): 0 Source: Developed by Greer Murphy Kurt Kroenke and colleagues, with an educational ewa from [employer]. Review of Systems Const Denies headache(s) Eyes Reports no additional complaints and Denies change in vision ENT Denies vertigo, Denies dizziness and Denies headache(s) Card Denies chest pain, Denies leg edema and Denies lightheadedness Resp Denies cough and Denies wheezing GI Reports no additional complaints Reports no additional complaints Musc Denies joint swelling, Denies numbness, Reports stiffness and Denies tingling Neuro Denies vertigo, Denies dizziness, Denies headache(s), Denies numbness and Denies tingling Endo Reports no additional complaints Brandyn/Lymph Reports no additional complaints Aller/Immun Denies wheezing Physical exam (Primary Care) Vital Signs: Last Vital Signs Temp 97.4 F 01/15/25 11:54 Pulse 63 01/15/25 11:54 Resp 16 01/15/25 11:54 BP 110/66 01/15/25 11:54 Pulse Ox 94 01/15/25 11:54 Oxygen Delivery Method Room Air 01/15/25 11:54 BMI result Body Mass Index 52.3 Tobacco/Smoking Status: Tobacco use Status Tobacco use date assessed 01/15/25 01/15/25 11:52 Patient Tobacco Use Status Former Tobacco user 01/15/25 11:52 Tobacco use type Cigarette 01/15/25 11:52 e-Cigarette/Vaping Use Never Used 01/15/25 11:52 PHQ-9: PHQ-9 Score PHQ-9: Total score 2 01/15/25 11:52 Depression Screening Interpretation: Negative Thrive Assessment: Date of Thrive Assessment Date Thrive assessed 10/01/24 01/15/25 11:52 Currently or been in a relationship where the following occur: I choose not to answer Const General: comfortable, no acute distress, well developed, alert and awake Orientation/consciousness: patient oriented x3 HENMT Ears: EAC's normal Mouth: oropharynx normal and moist mucous membranes Eyes General: appearance normal, both eyes and all related structures Neck Neck: Yes full ROM, Yes no lymphadenopathy and Yes supple Resp Effort & Inspection: normal respiratory effort and able to speak in complete sentences Auscultation: clear to auscultation bilaterally Cardio Rate: regular rate Rhythm: regular rhythm Heart sounds: S1 normal heart sound present and S2 normal heart sound present GI Inspection: Yes Abdominal panniculus present and Yes obesity Palpation (GI): Soft to palpation and nontender Auscultation: normal bowel sounds Back/Spine/Pelvis Back: No back tenderness Skin General skin exam: no rashes or lesions noted Neuro General: patient oriented x3 Cognition (Neuro): normal cognition Gait exam (Neuro): Assistive device used (Walker) Motor exam (neuro): 5/5 motor strength present throughout Extrem General: Yes full ROM, Yes no joint enlargement, Yes no pedal edema and Yes no calf tenderness Psych Appearance: grossly normal and well kempt Mental Status: mental status grossly normal Speech and movement: Normal speech and movement present Affect: normal affect Results Reviewed Results Reviewed: Name: Marysol Galindo Age/Sex: 79/F : 1945 Unit#: [id number] Attend Dr: Wanda Richardson MD Re01/08/25 Status: DEP REF Location: [facility] Disch: SPEC : [id number] KATLYN: 01/08/25 STATUS: COMP REQ : [id number] RECD: 01/08/25-[address]: Wanda Richardson MD COMP: 01/08/25 ENTERED: 01/08/[address]: ORDERED: Met Prof Fast, AST, ALT, Lipid Panel, Vitamin D 25-OH Test Result Flag Reference Sodium 137 135-145 mmol/L Potassium 4.2 3.3-5.1 mmol/L CL 97 96-108 mmol/L CO2 30 H 22-29 mmol/L Gap 14 12-20 BUN 10 9-16 mg/dL Creat 0.57 0.5-1.4 mg/dL eGFR > 60 Chronic Kidney Disease: Estimated GFR < 60 mL/min/1.73m2 Severe Kidney Disease: Estimated GFR < 15 mL/min/1.73m2 FBS 109 H 60-99 mg/dL A fasting glucose from 100-125 mg/dl is considered impaired (pre-diabetes). CA 9.8 8.4-10.2 mg/dL AST (GOT) 30 5-31 U/L ALT (GPT) 20 0-31 U/L Triglyceride 84 <150 mg/dL Desirable Triglyceride: less than 150 mg/dL Borderline High Triglyceride 150-199 mg/dL High Triglyceride: 200-499 mg/dL Very High Triglyceride: greater than or equal to 5OO mg/dL Cholesterol 193 <200 mg/dL Desirable Cholesterol: less than 200 mg/dL Borderline High Cholesterol: 200-239 mg/dL High Cholesterol: greater than 239 mg/dL LDL Calculated 93 <100 mg/dL Desirable LDL: less than 100 mg/dL Near Optimal/Above Optimal LDL: 110-129 mg/dL Borderline High LDL: 130-159 mg/dL High LDL: 160-189 mg/dL Very High LDL: greater than or equal to 190 mg/dL HDL 84 >40 mg/dL Desirable HDL: greater than 40 mg/dL Note: This HDL assay may give artificially low results in patients with liver disease. Vitamin D 25-OH 52.1 >30 ng/mL Health Based Reference Values* < 20 ng/mL Deficient 20-30 ng/mL Insufficient > 30 ng/mL Sufficient Laboratory Tests 01/08/25 08:54 Estimat Average Glucose 105 Hemoglobin A1c % 5.3 Coding Level of Care Code Complex EM visit Add On G2211 Diagnoses Dyslipidemia E78.5 Essential hypertension I10 Impaired fasting glucose R73.01 Osteopenia of multiple sites M85.89 Assessment & Plan Assessment & Plan (1) Dyslipidemia: Code(s): E78.5 - Hyperlipidemia, unspecified Category: Medical Plan: Reviewed recent fasting lipid profile with patient with levels within normal limits . Continue simvastatin 20 mg at bedtime , in addition to adherence to low-cholesterol diet and regular exercise, at least 30 minutes 3 to 4 times a week. Advised patient to make healthy food choices, eat more fruits, veg etables, whole grains, wild caught fish and low-fat dairy. Limit amount of meat and fried or fatty food products, as well as processed foods and fast foods. Follow-up scheduled with repeat fasting lipid panel in May 2025 (2) Essential hypertension: Code(s): I10 - Essential (primary) hypertension Category: Medical Plan: Blood pressure stable and controlled on current treatment. (3) Impaired fasting glucose: Code(s): R73.01 - Impaired fasting glucose Category: Medical Plan: Your previous fasting blood sugars were elevated above 100 mg/dL. Latest hemoglobin A1c however is within normal limits at 5.3%. Impaired glucose metabolism increases the risk for developing diabetes mellitus type 2, as well as heart attack and stroke later on. Lifestyle changes that promotes weight loss, healthy eating habits, and regular exercise are important, and can prevent the progression to diabetes (4) Osteopenia of multiple sites: Code(s): M85.89 - Other specified disorders of bone density and structure, multiple sites Category: Medical Plan: Latest bone density scan showed marked improvement in bone density now normal in lumbar spine and osteopenia in left femoral neck and left femur. Continue alendronate 70 mg once a week, in addition to doing regular weight-bearing exercise, continue taking vitamin-D 3 supplements daily and adequate calcium from dietary sources repeat another bone density scan in 2026 Orders: Orders Vitamin D 25-OH Total 05/27/25 E78.5 - Hyperlipidemia, unspecified, I10 - Essential (primary) hypertension, M85.89 - Other specified disorders of bone density and structure, multiple sites, R73.01 - Impaired fasting glucose, Z87.39 - Personal history of other diseases of the musculoskeletal system and connective tissue Aspartate Amino Transferase 05/27/25 E78.5 - Hyperlipidemia, unspecified, I10 - Essential (primary) hypertension, M85.89 - Other specified disorders of bone density and structure, multiple sites, R73.01 - Impaired fasting glucose, Z87.39 - Personal history of other diseases of the musculoskeletal system and connective tissue Lipid Panel 05/27/25 E78.5 - Hyperlipidemia, unspecified, I10 - Essential (primary) hypertension, M85.89 - Other specified disorders of bone density and structure, multiple sites, R73.01 - Impaired fasting glucose, Z87.39 - Personal history of other diseases of the musculoskeletal system and connective tissue Alanine Aminotransferase 05/27/25 E78.5 - Hyperlipidemia, unspecified, I10 - Essential (primary) hypertension, M85.89 - Other specified disorders of bone density and structure, multiple sites, R73.01 - Impaired fasting glucose, Z87.39 - Personal history of other diseases of the musculoskeletal system and connective tissue Basic Metabolic Panel Fasting 05/27/25 E78.5 - Hyperlipidemia, unspecified, I10 - Essential (primary) hypertension, M85.89 - Other specified disorders of bone density and structure, multiple sites, R73.01 - Impaired fasting glucose, Z87.39 - Personal history of other diseases of the musculoskeletal system and connective tissue Hemoglobin A1c 05/27/25 E78.5 - Hyperlipidemia, unspecified, I10 - Essential (primary) hypertension, M85.89 - Other specified disorders of bone density and structure, multiple sites, R73.01 - Impaired fasting glucose, Z87.39 - Personal history of other diseases of the musculoskeletal system and connective tissue
[2025-01-15 11:54] VITALS: BP 110/66; PULSE 63; RESP 16; TEMP 36.3; O2SAT 94; BMI 52.3
== END 2025-01-15 12:25 | disposition home or self-care (01) ==
PROVIDERS: PCP Internal Medicine; Visit Provider Internal Medicine
DX: E78.5 Hyperlipidemia, unspecified (principal); I10 Essential (primary) hypertension; R73.01 Impaired fasting glucose; M85.89 Other specified disorders of bone density and structure, multiple sites

== ENCOUNTER → 2025-01-15 11:24 | Outpatient (BNVA) | payer MEDICARE, SELFPAY | PROVIDERS: PCP Internal Medicine; Visit Provider Internal Medicine | DX: I10 Essential (primary) hypertension (principal); E78.5 Hyperlipidemia, unspecified; R73.01 Impaired fasting glucose; M85.89 Other specified disorders of bone density and structure, multiple sites | CPT/HCPCS: 96127; 99212 ==